=== PATIENT | female | born 1950 | race Caucasian/White ===

== ENCOUNTER → 2019-11-22 09:59 | Outpatient (BNVA) | payer MEDICARE, SELFPAY | PROVIDERS: PCP Internal Medicine; Visit Provider Surgery Vascular Surgery | DX: I65.23 Occlusion and stenosis of bilateral carotid arteries (principal) | CPT/HCPCS: 99213 ==

== ENCOUNTER 2020-04-23 10:35 | Outpatient (REF) | payer MEDICARE, SELFPAY ==
[2020-04-23 14:14] LABS: Glucose Urine UA NEG (NEG); Leukocyte Esterase Urine NEG (NEG); Nitrite Urine NEG (NEG); PH 5.5 (5.0-8.0); Specific Gravity - Urine >= 1.030 (1.005-1.025); Urine Blood NEG (NEG); Urine Ketones 5 MG/DL (NEG); Urine Protein TRACE MG/DL (NEG-TRACE)
[2020-04-23 14:17] LABS: Appearance Urine TURBID; Color Urine YELLOW
[2020-04-23 14:20] LABS: Estimated Average Glucose 154 mg/dL
[2020-04-23 14:31] LABS: Alanine Aminotransferase 13 U/L (0-31); Albumin Level 4.2 g/dL (3.5-5.0); Alkaline Phosphatase 124 U/L (39-117); Anion Gap 15 (12-20); Aspartate Amino Transferase 13 U/L (5-31); Bilirubin Total 0.4 mg/dL (0.0-1.0); Blood Urea Nitrogen 14 mg/dL (9-16); Calcium 9.4 mg/dL (8.4-10.2); Carbon Dioxide 29 mmol/L (22-29); Chloride 104 mmol/L (96-108); Cholesterol 274 mg/dL; Estimated Glomerular Filt Rate > 60; Glucose Fasting 165 mg/dL (60-99); HDL Cholesterol 29 mg/dL; LDL Cholesterol Calculated 172 mg/dl; Potassium 3.9 mmol/L (3.3-5.1); Sodium 144 mmol/L (135-145); Total Protein 6.7 g/dL (6.5-8.0); Triglycerides 365 mg/dL
[2020-04-23 14:51] LABS: Microalbum/Creatinine Ratio Ur 25.6 ug/mg cr
== END 2020-04-23 10:36 | disposition home or self-care (01) ==
LOC: HO.HMGCLDS 10:35
PROVIDERS: PCP Internal Medicine; Visit Provider Internal Medicine
DX: E11.9 Type 2 diabetes mellitus without complications (principal); E78.2 Mixed hyperlipidemia; C91.90 Lymphoid leukemia, unspecified not having achieved remission
CPT/HCPCS: 36415; 80053; 80061; 81003; 82043; 83036

== ENCOUNTER → 2020-05-10 08:08 | Outpatient (BNV) | payer MEDICARE, SELFPAY | PROVIDERS: PCP Internal Medicine; Visit Provider Internal Medicine Medical Oncology | DX: C91.10 Chronic lymphocytic leukemia of B-cell type not having achieved remission (principal) | CPT/HCPCS: 99213; 99214 ==

== ENCOUNTER → 2020-05-23 15:39 | Outpatient (BNVA) | payer MEDICARE, SELFPAY | PROVIDERS: PCP Internal Medicine; Visit Provider Nurse Practitioner | DX: R10.32 Left lower quadrant pain (principal); K57.92 Diverticulitis of intestine, part unspecified, without perforation or abscess without bleeding | CPT/HCPCS: Q3014 ==

== ENCOUNTER 2020-05-28 07:12 | Outpatient (REF) | payer MEDICARE, SELFPAY ==
[2020-05-28 11:57] LABS: Blood Urea Nitrogen 15 mg/dL (9-16); Estimated Glomerular Filt Rate > 60
== END 2020-05-28 07:13 | disposition home or self-care (01) ==
LOC: HO.HMGCLDS 07:12
PROVIDERS: PCP Internal Medicine; Visit Provider Nurse Practitioner
DX: R10.32 Left lower quadrant pain (principal); K57.92 Diverticulitis of intestine, part unspecified, without perforation or abscess without bleeding
CPT/HCPCS: 36415; 82565; 84520

== ENCOUNTER 2020-05-30 10:44 | Outpatient (REF) | payer MEDICARE, SELFPAY | END 2020-05-30 10:45 | disposition home or self-care (01) | LOC: HO.CT 10:44 | PROVIDERS: Visit Provider Nurse Practitioner | DX: Z13.89 Encounter for screening for other disorder (principal) ==

== ENCOUNTER 2020-06-05 08:20 | Outpatient (REF) | payer MEDICARE, SELFPAY ==
--- NOTE | ~2020-06-05 | CT_ITS ---
EXAMINATION: CT ABDOMEN AND PELVIS WITH CONTRAST CLINICAL INFORMATION: Diverticulitis. COMPARISON: CT abdomen/pelvis dated 01/28/2018. TECHNIQUE: Multidetector volumetric images were obtained from the superior aspect of the liver through the pubic symphysis following administration 85 mL of Omnipaque 350 intravenous contrast. Sagittal and coronal reformatted images were obtained on the technologist's workstation. Oral contrast: Yes. This CT examination was performed using dose optimization techniques as appropriate, variously including the following: *Automated exposure control. *Adjustment of mA and/or kV according to patient size (this includes techniques or standardized protocols for targeted exams where dose is matched to indication/reason for exam; i.e. extremities or head) *Use of iterative reconstruction technique. DLP: 798 mGy-cm. FINDINGS: LUNG BASES: The visualized lung bases are unremarkable. LIVER, GALLBLADDER, AND BILIARY TREE: The liver is normal in size, shape, and attenuation. No focal hepatic lesion or biliary ductal dilatation is present. Status post cholecystectomy. PANCREAS: Unremarkable. SPLEEN: Mild splenomegaly, unchanged. Stable small hypodensities within the posteroinferior aspect of the spleen, unchanged. No new splenic parenchymal lesion. ADRENAL GLANDS: Unremarkable. KIDNEYS AND URETERS: The kidneys are normal in size, shape, and attenuation. No hydronephrosis, hydroureter, or calculi seen. No perinephric stranding. BLADDER: Nondistended and unremarkable. GASTROINTESTINAL TRACT: Sigmoid diverticulosis with circumferential wall thickening and adjacent fat stranding, consistent with acute diverticulitis. There is extraluminal air extending inferior to the left pelvic sigmoid colon in a posterior direction to the region of the vaginal stump. This demonstrates mild peripheral enhancement with adjacent stranding and is consistent with a rectovaginal fistula. No additional extra luminal free air. PERITONEAL CAVITY: No intra-abdominal ascites. No dependent free air. ABDOMINAL WALL: Tiny, fat-containing periumbilical hernia. LYMPH NODES: Redemonstration of mildly prominent retroperitoneal lymph nodes with the largest lymph node now measuring 1.1 x 1.3 cm anterior to the abdominal aorta (previously 0.8 x 1.1 cm). Redemonstration of pelvic lymph nodes with the largest on the right in the region of the external iliac measuring 1.3 x 1.4 cm (previously 1.4 x 1.5 cm). VASCULAR: No abdominal aortic dilatation or dissection. Atherosclerotic calcifications throughout the abdominal aorta and its branch vessels. Unremarkable IVC. PELVIC VISCERA: Status post hysterectomy. OSSEOUS STRUCTURES: There is an age indeterminant inferior endplate compression fracture of L1, new when compared to the CT from 2018. CT/CT abdomen pelvis w con IMPRESSION: 1. Findings consistent with acute diverticulitis within the sigmoid colon and rectum. 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 No additional extraluminal air or abscess formation. 2. Stable, mild splenomegaly. Redemonstration of mildly prominent retroperitoneal and pelvic lymph nodes, a few of which have minimally increased in size in a few of which have minimally decreased in size when compared to the CT from 2018. No significant interval increase in lymphadenopathy. 3. Age indeterminant inferior endplate compression fracture of L1, new when compared to the CT from 2018. This critical result was discussed with ELISABETH Flores at 1:30 PM on 06/05/2020 and it was ascertained that the content and urgency of the report was understood at the time of direct communication.
[2020-06-05] MEDS: iohexoL 350 MG/ML 100 ML INFUS..BTL 85 ML IV (08:56)
== END 2020-06-05 08:21 | disposition home or self-care (01) ==
LOC: HO.CT 08:20
PROVIDERS: Visit Provider Nurse Practitioner
DX: R10.32 Left lower quadrant pain (principal); K57.92 Diverticulitis of intestine, part unspecified, without perforation or abscess without bleeding
CPT/HCPCS: 74177; Q9967

== ENCOUNTER → 2020-06-11 15:36 | Outpatient (BNVA) | payer MEDICARE, SELFPAY | PROVIDERS: PCP Internal Medicine; Visit Provider Surgery | DX: K57.92 Diverticulitis of intestine, part unspecified, without perforation or abscess without bleeding (principal) | CPT/HCPCS: 99202 ==

== ENCOUNTER 2020-07-04 09:37 | Outpatient (REF) | payer MEDICARE, SELFPAY ==
[2020-07-04 14:33] LABS: Blood Urea Nitrogen 22 mg/dL (9-16); Estimated Glomerular Filt Rate 55
== END 2020-07-04 09:38 | disposition home or self-care (01) ==
LOC: HO.HMGCLDS 09:37
PROVIDERS: Referring Provider Internal Medicine; Visit Provider Surgery
DX: K57.92 Diverticulitis of intestine, part unspecified, without perforation or abscess without bleeding (principal); N82.3 Fistula of vagina to large intestine; Z79.899 Other long term (current) drug therapy
CPT/HCPCS: 36415; 82565; 84520; 99212

== ENCOUNTER 2020-07-10 08:27 | Outpatient (REF) | payer MEDICARE, SELFPAY ==
--- NOTE | ~2020-07-10 | CT_ITS ---
EXAMINATION: CT ABDOMEN AND PELVIS WITH CONTRAST CLINICAL INFORMATION: Diverticulitis. COMPARISON: Previous CT scans of the abdomen and pelvis most recent May 2020 TECHNIQUE: Multidetector volumetric images were obtained from the superior aspect of the liver through the pubic symphysis following administration 85 mL of Omnipaque 350 intravenous contrast. Sagittal and coronal reformatted images were obtained on the technologist's workstation. Oral contrast: Yes This CT examination was performed using dose optimization techniques as appropriate, variously including the following: *Automated exposure control *Adjustment of mA and/or kV according to patient size (this includes techniques or standardized protocols for targeted exams where dose is matched to indication/reason for exam; i.e. extremities or head) *Use of iterative reconstruction technique DLP: 732 mGy-cm FINDINGS: LUNG BASES: The visualized lung bases are unremarkable. LIVER, GALLBLADDER, AND BILIARY TREE: The liver is normal in size, shape, and attenuation. No focal hepatic lesion or biliary ductal dilatation is present. The gallbladder has been removed. PANCREAS: Unremarkable. SPLEEN: The spleen is slightly enlarged measuring 14 cm in length. There is a 1 x 2 cm peripheral low-attenuation lesion in the spleen that is stable from multiple old exams going back to 2018 and may represent a hemangioma. ADRENAL GLANDS: Unremarkable. KIDNEYS AND URETERS: The kidneys are normal in size, shape, and attenuation. No hydronephrosis, hydroureter, or calculi seen. No perinephric stranding. BLADDER: Not optimally distended. GASTROINTESTINAL TRACT: There is diverticulosis of the colon. There is still wall thickening of the sigmoid colon and mild fat stranding suggesting mild sigmoid diverticulitis. There is a large amount of stool in the colon. The small bowel is unremarkable. The appendix is unremarkable. The stomach is unremarkable. ABDOMINAL WALL: No significant hernia is appreciated. LYMPH NODES: There is prominent retroperitoneal lymphadenopathy that appears unchanged. Largest lymph nodes are a left periaortic lymph node measuring 1 x 1.3 cm axial image 50 and right external iliac lymph node measuring 1 x 1.5 cm axial image 85 series 3. VASCULAR: There is evidence of atherosclerotic disease. No aneurysm is seen. PELVIC VISCERA: Unremarkable. OSSEOUS STRUCTURES: There are degenerative changes of the spine. There is a mild L1 vertebral body compression fracture that appears unchanged. CT/CT abdomen pelvis w con IMPRESSION: Mild sigmoid diverticulitis similar to May 2020 exam. There is also evidence of constipation. Given persistent finding, correlation with colonoscopy should be considered. Prominent retroperitoneal lymph nodes in the abdomen and pelvis similar to previous exam. Findings will be communicated by the [facility] work flow radiologic tech Alda Bowen.
[2020-07-10] MEDS: iohexoL 350 MG/ML 100 ML INFUS..BTL IV (09:18)
== END 2020-07-10 08:28 | disposition home or self-care (01) ==
LOC: HO.CT 08:27
PROVIDERS: Visit Provider Surgery
DX: K57.92 Diverticulitis of intestine, part unspecified, without perforation or abscess without bleeding (principal)
CPT/HCPCS: 74177; Q9967

== ENCOUNTER → 2020-07-18 10:20 | Outpatient (BNVA) | payer MEDICARE, SELFPAY | PROVIDERS: Referring Provider Internal Medicine; Visit Provider Surgery | DX: N82.3 Fistula of vagina to large intestine (principal) | CPT/HCPCS: 99212 ==

== ENCOUNTER 2020-08-24 06:08 | Day surgery (SDC) | payer MEDICARE, SELFPAY ==
[2020-08-16 13:25] VITALS: BMI 36.3
--- NOTE | 2020-08-22 12:12 | HO.ANESPROP2 ---
Documented by User: Alejandra Max 08/22/20 12:13 HPI - Anesthesia Eval Consult details Narrative: 70yo F for Colonoscopy with poss Polypectomy PMFSH Active Problems Active Problems: All Active Problems (Updated 08/07/20 @ 08:24 by Yoel Bernal MD) Rectovaginal fistula (Acute) LLQ pain (Acute) Diverticulitis (Acute) CLL (chronic lymphocytic leukemia) (Acute) Diverticulosis (Acute) Carotid stenosis (Acute) Past Medical History Medical History CLL (chronic lymphocytic leukemia) Compression fracture Diverticulosis Hyperlipidemia Osteoarthritis Osteopenia PCOS (polycystic ovarian syndrome) Skin cancer, basal cell Thrombocytopenia Type 2 diabetes mellitus Family History Family History Father Mother Surgical History Surgical History Chronic disease of adenoids H/O colonoscopy H/O: hysterectomy History of ear surgery Hx of cholecystectomy Social History Social History Alcohol intake: current Alcohol intake frequency: holidays/special occasions only Patient Tobacco Use Status: Never used Tobacco Use of substances other than those prescribed or required for medical reasons: No Are you DNR?: No Advance Directives: No Advance Directives Information Provided: No Recently lost weight without trying: No Nutrition Risks: No Nutritional Risk Patient : No Meds Allergies Allergy/AdvReac Type Severity Reaction Status Date / Time guaifenesin Allergy Hives Verified 07/18/20 10:53 Home Medications Medication Instructions Recorded Confirmed Last Taken Type acetaminophen 500 mg tablet 500 mg PO QID PRN 11/22/19 07/18/20 Unknown History calcium carbonate [Tums] 300 mg PO BID 08/07/20 08/07/20 Unknown History Exam Exam Date and Time: August 22, 2020 1212 Height,Weight and Vital Signs: Height 5 ft 4 in Weight 96.162 kg Pertinent Lab Results Pertinent Lab Results: Laboratory Tests 08/07/20 08/07/20 07:45 07:45 WBC 43.2 H* Hgb 15.5 Hct 47.9 H Plt Count 125 L Sodium 143 Potassium 4.3 Chloride 106 Carbon Dioxide 25 BUN 17 H Creatinine 0.91 Assessment and Plan Assessment Anesthesia Assessment: Chart Reviewed Documented by User: Almita Bundy 08/24/20 07:35 PMFSH Past Medical History Medical History CLL (chronic lymphocytic leukemia) Compression fracture Diverticulosis Hyperlipidemia Osteoarthritis Osteopenia PCOS (polycystic ovarian syndrome) Skin cancer, basal cell Thrombocytopenia Type 2 diabetes mellitus Family History Family History Father Mother Family history of problems with anesthesia: No Surgical History Surgical History Chronic disease of adenoids H/O colonoscopy H/O: hysterectomy History of ear surgery Hx of cholecystectomy History of Problems with Anesthesia: No Social History Social History Alcohol intake: current Alcohol intake frequency: holidays/special occasions only Patient Tobacco Use Status: Never used Tobacco Use of substances other than those prescribed or required for medical reasons: No Are you DNR?: No Advance Directives: No Advance Directives Information Provided: No Recently lost weight without trying: No Nutrition Risks: No Nutritional Risk Patient : No Meds Allergies Allergy/AdvReac Type Severity Reaction Status Date / Time guaifenesin Allergy Hives Verified 07/18/20 10:53 Home Medications Medication Instructions Recorded Confirmed Last Taken Type acetaminophen 500 mg tablet 500 mg PO QID PRN 11/22/19 07/18/20 Unknown History calcium carbonate [Tums] 300 mg PO BID 08/07/20 08/07/20 Unknown History Exam Height,Weight and Vital Signs: Vital Signs Temp Pulse Resp BP Pulse Ox 08/24/20 06:45 97.8 F 90 16 146/54 H 93 Airway Mallampati Class: II TM Dist: >3cm Neck ROM: Full Loose/Missing/Broken Teeth: No (2 top front capped) Heart: RRR Lungs: CTAB Assessment and Plan Assessment Anesthesia Assessment: Anesthesia Plan Discussed and Chart Reviewed Final Anesthetic Review NPO: Yes ASA Class: III Final Preanesthetic Review: No Changes in Pt Med Stat, Meds/Allgs Chart Reviewed, Consent Obtained/Reviewed and Anes Risks/Benef Reviewed Patient Risk: Intermediate Procedure Risk: Low Assessment/Block/Sedation in SS: Assess/Block/Sedation-SS Anesthetic Plan Anesthetic Plan: MAC: Disposition: Standard PACU
[2020-08-24 06:23] VITALS: BMI 37.5
[2020-08-24 06:45] VITALS: BP 146/54; PULSE 90; RESP 16; TEMP 36.6; O2SAT 93
[2020-08-24] MEDS: Lactated Ringers 1,000 ML 100 ML IVCONT (06:56)
--- NOTE | 2020-08-24 07:07 | MHC.SHP ---
Pre-Procedural Eval Section A Date of Service: 08/24/20 The patient is an INPATIENT: No The History & Physical has been completed within 30 days and I have reviewed it.: No Section B Chief Complaint: rectovaginal fistula Details of Present Illness: has ?colovaginal fistula; ffup CT in June - mild diverticulitis; last colonoscopy was about 15 year ago Relevant Family History (Specify if Yes): No Relevant Social History: None Present Medications: see Short Stay Collaborative assessment Medical History: Significant History (CLL, obesity, DM, HTN) History of Previous Operations: Relevant previous surgery/procedure and date(s) (THBSO) Allergies: Allergies Allergy/AdvReac Type Severity Reaction Status Date / Time guaifenesin Allergy Hives Verified 07/18/20 10:53 Review of Systems Sugical H&P ROS: Negative: Constitution, Cardiovascular, Respiratory, Neurological, Psychiatric, Hem-Onc, Allergic/Immunologic, Gastrointestinal, Genitourinary, Musculoskeletal, Integumentary, Endocrine and Eyes/Ears/Nose/Throat Exam Surgical H&P Exam: Normal: HEENT, Normal: Heart, Normal: Lungs, Normal: Extremities, Normal: Abdomen, Normal: Skin and Normal: Neurological Plan Diagnosis/Plan: Unchanged I have reviewed the history and physical and performed a pertinent physical examination on my patient. No changes have occurred unless specified.
--- NOTE | 2020-08-24 07:46 | W.PM.OPN ---
Operative Note Operative Note Date of Service: 08/24/20 Narrative: Preop diagnosis: diverticular disease, with colovaginal fistula Postop diagnosis: Diverticular disease, colovaginal fistula Procedure: Flexible sigmoidoscopy, unable to complete planned colonoscopy Surgeon: Juan Carlos Mckeon MD The patient is a 70 year female with known diverticular disease, who had described some scanty drainage from her vagina. She has a history of total hysterectomy and bilatertal salpingo-oophorectomy for polycystic ovarian syndrome in the distant past. She had a CAT scan done in May showing what appeared to be a the linear tract of extraluminal air from the sigmoid to the vaginal stump suggestive of fistula. her last colonoscopy was more than 15 years ago and I therefore recommended a repeat to try to evaluate this area. She understood the technique of colonoscopy. She was aware of the risks, benefits, and alternatives She was brought to the operating room placed in left lateral decubitus position under monitored anesthesia care. A full digital rectal was done and there were no palpable anal canal lesions. The tip of the Olympus colonoscope was gently inserted through the anal orifice and advanced with mild insufflation to the rectum where we gently advanced the scope and there was note of diverticulosis in the sigmoid. When we reached the level about 22 cm, we had encountered what appeared to be an angulation and some edema the mucosa at this area. I was unable to advance the scope with gentle force through this angulation and edema. There where no obvious lesions. I attempted multiple times with gentle advancement. However, in view of the risk of detaching of fistulous disease from the vaginal stump and causing perforation, I decided that it would be unsafe to continue to attempt more force. I therefore proceeded to withdraw the scope with examination of the rest of the distal sigmoid and rectum. Again, she had heavy diverticulosis of the distal sigmoid. The rectum did not reveal any lesions. The anal canal was unremarkable. The scope was then withdrawn completely The patient otherwise tolerated procedure well. There were no immediate complications . I will see her in the office to discuss the next step in her care.
[2020-08-24 07:49] VITALS: BP 104/58; PULSE 74; RESP 16; TEMP 36.9; O2SAT 98
--- NOTE | 2020-08-24 07:52 | PM.OP ---
Brief Operative Note Date of Service: 08/24/20 Pre-op diagnosis: Colovaginal fistula, diverticular disease Post-op diagnosis: same Procedure: flexible sigmoidoscopy, unable to complete planned colonoscopy due to angulation in the sigmoid with edema Surgeon: Juan Carlos Mckeon MD Anesthesia: MAC Was an Potato Chip Cooker Machine used for this Procedure?: No Estimated blood loss (mL): 0 Pathology: none sent Condition: stable Disposition: PACU
[2020-08-24 08:06] VITALS: BP 127/64; PULSE 71; RESP 18; TEMP 36.8; O2SAT 98
== END 2020-08-24 08:41 | disposition home or self-care (01) ==
PROVIDERS: Visit Provider Surgery
PROC: 0DBE8ZZ Excision of Large Intestine, Via Natural or Artificial Opening Endoscopic (ICD-10-PCS; CPT 45330; principal; 2020-08-24 07:30)
DX: N82.3 Fistula of vagina to large intestine (principal); K57.30 Diverticulosis of large intestine without perforation or abscess without bleeding; K56.609 Unspecified intestinal obstruction, unspecified as to partial versus complete obstruction; R60.9 Edema, unspecified; C91.10 Chronic lymphocytic leukemia of B-cell type not having achieved remission; D69.6 Thrombocytopenia, unspecified; E11.9 Type 2 diabetes mellitus without complications; E78.5 Hyperlipidemia, unspecified; M85.80 Other specified disorders of bone density and structure, unspecified site; Z79.899 Other long term (current) drug therapy
CPT/HCPCS: 45330

== ENCOUNTER → 2020-09-10 10:13 | Outpatient (BNVA) | payer MEDICARE, SELFPAY | PROVIDERS: Referring Provider Internal Medicine; Visit Provider Surgery | DX: N82.3 Fistula of vagina to large intestine (principal) | CPT/HCPCS: Q3014 ==

== ENCOUNTER → 2020-09-18 13:15 | Outpatient (BNVA) | payer MEDICARE, SELFPAY | PROVIDERS: PCP Internal Medicine; Referring Provider Internal Medicine; Visit Provider Nurse Practitioner | DX: K57.92 Diverticulitis of intestine, part unspecified, without perforation or abscess without bleeding (principal); N82.3 Fistula of vagina to large intestine | CPT/HCPCS: 99212 ==

== ENCOUNTER 2021-08-21 06:49 | Outpatient (REF) | payer MEDICARE, SELFPAY ==
--- NOTE | ~2021-08-21 | CT_ITS ---
EXAMINATION: CT SOFT TISSUE NECK WITH CONTRAST CLINICAL INFORMATION: 71-year-old with splenomegaly and lymph nodes. COMPARISON: 01/28/2018 CT. TECHNIQUE: Following the intravenous administration of 85 mL of Omnipaque 350 intravenous contrast, helical imaging was performed in the axial plane with generation of coronal and sagittal reformatted images. This CT examination was performed using dose optimization techniques as appropriate, variously including the following: *Automated exposure control *Adjustment of mA and/or kV according to patient size (this includes techniques or standardized protocols for targeted exams where dose is matched to indication/reason for exam; i.e. extremities or head) *Use of iterative reconstruction technique Technical Note: Some limitations related to oblique scan angles secondary to body habitus and head tilt/rotation. DLP: 1914 mGy-cm FINDINGS: SKULL BASE: The bony skull base appears grossly intact. Mild right-sided TMJ arthrosis, stable in appearance. Limited assessment of the visualized intracranial structures demonstrates no acute process within the limitations of the exam. The visualized calvarium is intact. The mastoids and middle ear cavities are unopacified. Bilateral carotid calcifications are noted. SUPRAHYOID NECK: Limited assessment of the nasopharynx due to oblique scan angles. Otherwise grossly unremarkable. Parapharyngeal spaces appear within normal limits within the limitations of the study. Streak and beam-hardening artifact from metallic dentition in the oral cavity results in obscuration of structures at the level of the oral cavity. The parotid glands are somewhat asymmetric with the right being larger than the left, similar to the previous exam, but otherwise normal in attenuation. Numerous periparotid lymph nodes are noted which are not pathologically enlarged, stable in appearance. A left posterior cervical lymph node at the C2 level is stable in appearance measuring 6 x 8 mm. There is limited assessment of the oropharynx due to scan asymmetry. No interval change from previous exam. Retropharynx is unremarkable. The submandibular glands are similar in appearance to the previous study. There are multiple bilateral submandibular space, submental and IJ chain lymph nodes, with the largest of these on the right measuring 2.1 x 0.8 cm compared to 2.3 x 0.9 cm on the previous study. Largest on the left measures 2.0 x 0.8 cm, unchanged in size. Multiple other smaller lymph nodes are largely stable. There is a 1.5 x 1.2 cm right posterior cervical chain lymph node at the C2-C3 level which appears slightly more plump on the current study in greatest short axis. INFRAHYOID NECK: The hypopharynx, larynx and thyroid gland appear within normal limits and stable in appearance. Normal appearance to the tracheoesophageal grooves. Multiple small bilateral IJ chain lymph nodes at the infrahyoid level are largely unchanged. Level V lymph nodes on the left are largely unchanged and not pathologically enlarged. Some level IV lymph nodes are seen bilaterally which are not pathologically enlarged and are stable in appearance. A single, mildly prominent left supraclavicular lymph node is stable. UPPER CHEST: See accompanying CT of the chest. SKELETAL: Multilevel cervical DDD and spondylosis is stable in appearance. Cervicothoracic dextrocurvature is unchanged. No focally aggressive osseous lesion. OTHER COMMENTS: None. CT/CT soft tissue neck w con IMPRESSION: 1. Numerous lymph nodes seen throughout the suprahyoid and infrahyoid portions of the neck, most of which are stable in appearance when compared to the previous study. A prominent lymph node in the right submandibular space appears slightly smaller and a prominent lymph node in the right posterior cervical chain at the C2-C3 level appears slightly more plump. Follow up as per clinical indications and correlate with underlying medical history. 2. Atheromatous calcified plaque at both carotid bulbs is noted with less than 50% diameter reduction stenosis by NASCET criteria bilaterally. 3. Some limitations related to scan angle obliquities at the level of the oral cavity and nasopharynx as detailed above. Suggest correlation with direct visualization of the pharyngeal tonsils/oropharynx and nasopharynx.
--- NOTE | ~2021-08-21 | CT_ITS ---
EXAMINATION: CT CHEST, ABDOMEN AND PELVIS WITH CONTRAST. CLINICAL INFORMATION: Follow up splenomegaly and lymph nodes. COMPARISON: CT of the abdomen and pelvis 07/10/2020 and 06/05/2020. TECHNIQUE: 5 mm thin axial and reformatted 2 mm thin sagittal and coronal images of chest, abdomen pelvis were obtained following IV 85 mL Omnipaque 350. DLP 1914. FINDINGS: CHEST: Lungs: Both lungs are fairly well expanded with patchy atelectatic changes in the left lower lobe and right upper lobe anteromedial segment. No focal pulmonary nodule, mass or consolidation is seen. There is plate-like atelectasis in the right lower lobe. MEDIASTINUM: The thyroid lobes are symmetrical and normal. The central trachea and the bronchi are widely patent. The heart size and pulmonary vascularity is normal. No pericardial effusion is seen. No abnormal size mediastinal or hilar lymph nodes are seen. PLEURA: There is no pleural effusion, thickening or calcification. AXILLA: There are multiple bilateral axillary and bilateral lateral thoracic lymph nodes which appear abnormal. The largest left axillary lymph node measures 1.6 cm. No abnormal soft tissue mass is seen in the chest wall. ABDOMEN AND PELVIS: LIVER: The liver is normal size, contour and density. No focal lesion or intrahepatic ductal dilatation is seen. The gallbladder has been surgically removed. SPLEEN: Unremarkable. PANCREAS: Unremarkable. ADRENAL GLANDS AND KIDNEYS: Both adrenal glands are symmetric and normal. Both kidneys are normal size, shape and position. No radiopaque calculi or hydronephrosis is seen. GI TRACT: There is scattered stool seen in the colon without any distention. There is nonspecific mild mural thickening involving the distal ileum or the ileal loops. The rest of the small bowel loops are unremarkable. Appendix is not visualized. There is diffuse colonic diverticulosis. LYMPHOVASCULAR STRUCTURES: The abdominal aorta is of normal caliber. The retroperitoneal lymphadenopathy is similar to previous study. The largest lymph node anterior to the aorta measures 1.2 cm. ABDOMINAL WALL: There is no evidence of hernia. PELVIS: There are scattered diverticuli in sigmoid colon without mural thickening or pericolic fat stranding. The bladder is unremarkable. No abnormal pelvic or inguinal lymph nodes seen. OSSEOUS STRUCTURES: There is mild degenerative disc changes throughout lower dorsal spine and L4-L5 disc level. There is inferior endplate wedging, likely chronic. No aggressive lytic or sclerotic process is seen. CT/CT abdomen pelvis w con IMPRESSION: Minimal atelectatic changes in both lungs as described above. No pulmonary nodule or mass seen. Abnormal axillary lymph nodes of unknown etiology. Nonspecific mild mural thickening of terminal ileum but no obstruction or fat stranding seen. Sigmoid colon diverticulosis without diverticulitis. Stable retroperitoneal lymphadenopathy. Degenerative disc changes.
[2021-08-21] MEDS: iohexoL 350 MG/ML 100 ML INFUS..BTL IV (10:27)
[2021-08-21] MEDS: Barium Sulfate Oral (Berry) 450 ML ORAL.SUSP 900 ML PO (10:28)
== END 2021-08-21 06:50 | disposition home or self-care (01) ==
LOC: HO.CT 06:49
PROVIDERS: Visit Provider Internal Medicine Medical Oncology
DX: C91.10 Chronic lymphocytic leukemia of B-cell type not having achieved remission (principal)
CPT/HCPCS: 70491; 71260; 74177; Q9967

== ENCOUNTER 2022-08-20 08:58 | Outpatient (REF) | payer MEDICARE, SELFPAY ==
[2022-08-20 12:48] LABS: Blood Urea Nitrogen 15 mg/dL (9-16); Estimated Glomerular Filt Rate > 60
== END 2022-08-20 08:59 | disposition home or self-care (01) ==
LOC: HO.HMGCLDS 08:58
PROVIDERS: Visit Provider Internal Medicine Medical Oncology
DX: C91.10 Chronic lymphocytic leukemia of B-cell type not having achieved remission (principal)
CPT/HCPCS: 36415; 82565; 84520

== ENCOUNTER 2022-09-02 06:02 | Outpatient (REF) | payer MEDICARE, SELFPAY ==
--- NOTE | ~2022-09-02 | CT_ITS ---
EXAMINATION: CT CHEST, ABDOMEN AND PELVIS WITH CONTRAST CLINICAL INFORMATION: Follow-up chronic lymphocytic leukemia. COMPARISON: Prior CT examinations, most recently 08/21/2021. TECHNIQUE: Multidetector volumetric imaging was performed from the thoracic inlet through the pubic symphysis following administration of 85 mL Omnipaque 350 intravenous contrast. Sagittal and coronal reformatted images were obtained on the technologist workstation. This CT examination was performed using dose optimization techniques as appropriate, variously including the following: *Automated exposure control. *Adjustment of mA and/or kV according to patient size (this includes techniques or standardized protocols for targeted exams where dose is matched to indication/reason for exam, i.e., extremities or head). *Use of iterative reconstruction technique. DLP: 2144 mGy-cm. FINDINGS: CHEST: LUNGS: The lungs are clear with no evidence of inflammation or nodules. MEDIASTINUM: The mediastinum is normal. Central vascular structures are unremarkable. No hilar or mediastinal lymphadenopathy. PERICARDIUM/PLEURA: There is no significant effusion. No pleural mass or thickening. CHEST WALL/AXILLA: There are enlarged bilateral axillary lymph nodes. One of the largest within the right axilla shows a short axis diameter of 1.0 cm (3:29). One of the largest within the left axilla shows a short axis diameter of 1.1 cm (3:12 and 6:65). The overall appearance is relatively stable from 08/21/2021. ABDOMEN/PELVIS: LIVER, GALLBLADDER, BILIARY TREE: The liver is normal in size, shape, and attenuation. No focal hepatic lesion or biliary ductal dilatation is present. The gallbladder is surgically absent. PANCREAS: Unremarkable. SPLEEN: There is mild splenomegaly, with a longitudinal span of 13.5 cm (3:35). No focal finding is noted. ADRENAL GLANDS: Unremarkable. KIDNEYS AND URETERS: The kidneys are normal in size, shape, and attenuation. No hydronephrosis or hydroureter or calculi seen. No perinephric stranding. BLADDER: Decompressed and otherwise unremarkable. GASTROINTESTINAL TRACT: There is mild diverticulosis, without acute diverticulitis. There is a moderate stool burden in the left colon. No obstruction, free intraperitoneal air or abscess is seen. There is no focal bowel wall thickening. The vermiform appendix appears normal. ABDOMINAL WALL: There is a small fat-containing umbilical hernia. LYMPH NODES: Anterior to the aorta, there is a nonpathologically enlarged lymph node, with short axis diameter of 8 mm (3:57). No sizable abdominopelvic lymphadenopathy is seen. VASCULAR: There is moderate aortoiliac atherosclerotic calcification. No abdominal aortic aneurysm or dissection is seen. PELVIC VISCERA: Surgically absent. No pelvic mass, free fluid or lymphadenopathy is seen. OSSEOUS STRUCTURES: There is multi-level thoracolumbar degenerative disc disease, spondylosis and Schmorl's node formation. There is a stable mild to moderate T11 lower endplate anterior wedge compression fracture. There is a transitional lumbar vertebra. No acute or aggressive osseous abnormality is seen. CT/CT abdomen pelvis w IV con IMPRESSION: 1. No suspicious thoracic nodule is seen. There is no mass, infiltrate or groundglass opacity. 2. There are stable mildly prominent bilateral axillary lymph nodes. Recommend continued attention on imaging follow-up. 3. No pleural effusion is seen. 4. There is mild splenomegaly. 5. There is mild diverticulosis, without acute diverticulitis. 6. No sizable abdominopelvic lymphadenopathy is seen. There is a stable mildly prominent, nonpathologically enlarged para-aortic lymph node. 7. There are degenerative changes of the thoracolumbar spine. A stable mild to moderate T11 lower endplate compression fracture is noted. There is no acute or aggressive osseous finding.
--- NOTE | ~2022-09-02 | CT_ITS ---
EXAMINATION: CT SOFT TISSUE NECK WITH CONTRAST CLINICAL INFORMATION: Follow-up. CLL. COMPARISON: Soft tissue neck CT scan 08/21/2021. TECHNIQUE: Following the intravenous administration of 80 mL of Omnipaque 350 intravenous contrast, helical imaging was performed in the axial plane with generation of coronal and sagittal reformatted images. This CT examination was performed using dose optimization techniques as appropriate, variously including the following: *Automated exposure control *Adjustment of mA and/or kV according to patient size (this includes techniques or standardized protocols for targeted exams where dose is matched to indication/reason for exam; i.e. extremities or head) *Use of iterative reconstruction technique DLP: 2144 mGy-cm FINDINGS: Again there are multiple enlarged cervical lymph nodes, none of which have substantially changed in size when compared to the most recent prior examination from 08/21/2021. There are a few pathologically enlarged left axillary lymph nodes that are partially included within the [id number]-kk-vhwc of this examination. No mediastinal adenopathy. Pharyngeal mucosal spaces are symmetric. Parapharyngeal and retromaxillary fat is preserved. 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 The parotid and submandibular glands are unremarkable. The tongue base and epiglottis are normal. Preepiglottic fat is preserved. The subglottic airway is widely patent. The thyroid gland is normal and the remainder of the visualized visceral soft tissues are normal. Visualized lungs are clear. Scattered atheromatous calcification involves the aortic arch apex. Cervical carotid and vertebral arteries are grossly patent. Internal jugular veins fill symmetrically. There is no acute osseous finding. Specifically no worrisome lytic or blastic osseous lesion. CT/CT soft tissue neck w IV con IMPRESSION: Stable examination. Again there are multiple enlarged cervical lymph nodes, none of which have substantially changed in size when compared to prior imaging from 08/21/2021. There are a few pathologically enlarged left axillary lymph nodes that are partially included within the dyhoi-et-vsck of this examination.
[2022-09-02] MEDS: iohexoL 350 MG/ML 100 ML INFUS..BTL 85 ML IV (08:54)
[2022-09-02] MEDS: Barium Sulfate Oral (Vanilla) 450 ML ORAL.SUSP 900 ML PO (08:55)
== END 2022-09-02 06:03 | disposition home or self-care (01) ==
LOC: HO.CT 06:02
PROVIDERS: Visit Provider Internal Medicine Medical Oncology
DX: C91.10 Chronic lymphocytic leukemia of B-cell type not having achieved remission (principal)
CPT/HCPCS: 70491; 71260; 74177; Q9967

== ENCOUNTER 2022-12-30 09:12 | Outpatient (AMB) | payer MEDICARE, SELFPAY ==
[2022-12-30 09:16] VITALS: BP 112/70; PULSE 86; O2SAT 98; BMI 31.6
--- NOTE | 2022-12-30 09:16 | A.OFFPC_ITS ---
Vital Signs 12/30/22 09:16 Height 5 ft 4 in Weight 184 lb 0.6 oz BMI 31.6 BP 112/70 Blood Pressure Location Rt radial Position Sitting Pulse 86 Pulse Source Pulse Oximeter Pulse Oximetry (%) 98 Oxygen Delivery Method Room Air Intake Visit Reasons: Transfer from [facility] to [facility] Protective Services Case Worker Required: No Allergies guaifenesin Allergy (Verified 12/30/22 09:32) Hives Medication List - Last Reconciled 12/30/22 by STEFANY Collins No Known Home Meds Tobacco use date assessed: 12/30/22 Fall risk assessment: No Falls in past year Last assessed Fall Risk: 12/30/22 Dental Screening Dental Screen Date: 12/30/22 Did you have a dental visit in the last 12 months?: Yes Did you have a dental problem in the last 6 months where you did not have access to dental care?: No Was dental information given to patient?: Patient has dentist HPI Transfer from [facility] to [facility] HPI Details Patient is a 72-year-old female who presents today to transfer care from Dr. Rhodes. Medical history significant for diverticulosis-followed by Patricia MAR, CLL-followed by Dr. 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 Patient denies shortness of breath or chest pain. Patient is due for blood work [facility] Medical History (Updated 12/30/22 @ 09:37 by STEFANY Collins) Hyperlipidemia LLQ pain Diverticulitis Type 2 diabetes mellitus Diverticulosis Compression fracture Osteopenia Skin cancer, basal cell Osteoarthritis PCOS (polycystic ovarian syndrome) CLL (chronic lymphocytic leukemia) Thrombocytopenia Surgical History History of ear surgery H/O colonoscopy Chronic disease of adenoids Hx of cholecystectomy H/O: hysterectomy Family History Father Prostate cancer Mother Breast cancer Social History Household Members: None Housing: Condominium Are you a primary rn patient care to a significant other at home: No Do you presently have visiting nurse or other home services: No Alcohol intake: current Alcohol intake frequency: holidays/special occasions only Patient Tobacco Use Status: Never used Tobacco service: No Current occupational status: retired Cognitive needs: No Hearing needs: No Vision needs: No Questionnaire PHQ-9 Over the last 2 weeks, how often have you been bothered by any of the following problems? 1. Little interest or pleasure in doing things: not at all 2. Feeling down, depressed, or hopeless: not at all 3. Trouble falling or staying asleep, or sleeping too much: not at all 4. Feeling tired or having little energy: not at all 5. Poor appetite or overeating: not at all 6. Feeling bad about yourself - or that you are a failure or have let yourself or your family down: not at all 7. Trouble concentrating on things, such as reading the newspaper or watching television: not at all 8. Moving or speaking so slowly that other people could have noticed. Or the opposite - being so fidgety or restless that you have been moving around a lot more than usual: not at all 9. Thoughts that you would be better off or of hurting yourself in some way: not at all Total score: 0 Depression Screening Interpretation: Negative Depression Screening Done: Yes 91888 - PHQ-9 Billing: Yes Source: Developed by Drs. Julio Villanueva, Noy Servin, Osman Guerra and colleagues, with an educational james from [employer]. Thrive Questionnaire Date Thrive assessed: 12/30/22 I am a: Patient What is your living situation today?: I have a steady place to live Within the past 12 months, did the food you bought not last and you didn't have the money to get more?: Never true Within the past 12 months, did you worry whether your food would run out before you got money to buy more?: Never true Do you have trouble paying for medicines?: No Do you have trouble getting transportation to medical appointments?: No Do you have trouble paying your heating and electricity bill?: No Do you have trouble taking care of your child, family member or friend?: No Do you have trouble with day-to-day activities such as bathing, preparing meals, shopping, managing finances, etc.?: No Are you currently unemployed and looking for a job?: No Are you interested in more education?: No Currently or been in a relationship where the following occur: no concerns reported AUDIT C Alcohol Use Questionnaire (AUDIT-C) 1. How often do you have a drink containing alcohol?: Never 3. How often do you have six or more drinks on one occasion?: Never Total Score: 0 Score Reviewed/Action Taken: No MARCIA-7 AMB Questionnaire MARCIA-7 Date MARCIA - 7 assessed: 12/30/22 Feeling nervous, anxious, or on edge: 0 = Not at all Not being able to stop or control worryin = Not at all Worrying too much about different things: 0 = Not at all Trouble relaxin = Not at all Being so restless that it is hard to sit still: 0 = Not at all Becoming easily annoyed or irritable: 0 = Not at all Feeling afraid as if something awful might happen: 0 = Not at all Total MARCIA-7 score (0-4 normal; 5-9 mild; 10-14 moderate; 15-21 severe): 0 Source: Developed by Drs. Julio Villanueva, Noy Servin, Osman Guerra and colleagues, with an educational james from [employer]. MARCIA-7 Assessment Billing MARCIA-7 Assessment Tool: MARCIA-7 Assessment 42160 Review of Systems Const Denies body aches, Denies chills, Denies fever(s) and Denies headache(s) ENT Denies dizziness, Denies otalgia, Denies headache(s), Denies nasal discharge, Denies sinus pain and Denies sore throat Card Denies chest pain, Denies edema, Denies lightheadedness and Denies dyspnea Resp Denies cough, Denies dyspnea and Denies wheezing GI Denies abdominal pain Denies dysuria Musc Denies myalgias Skin/Breast Denies rash Neuro Denies dizziness and Denies headache(s) Aller/Immun Denies wheezing Physical exam (Primary Care) Vital Signs: Last Vital Signs Pulse 86 12/30/22 09:16 BP 112/70 12/30/22 09:16 Pulse Ox 98 12/30/22 09:16 Oxygen Delivery Method Room Air 12/30/22 09:16 BMI result Body Mass Index 31.6 Tobacco/Smoking Status: Tobacco use Status Tobacco use date assessed 12/30/22 12/30/22 09:18 Patient Tobacco Use Status Never used Tobacco 12/30/22 09:18 PHQ-9: PHQ-9 Score PHQ-9: Total score 0 12/30/22 09:24 Depression Screening Interpretation: Negative Thrive Assessment: Date of Thrive Assessment Date Thrive assessed 12/30/22 12/30/22 09:18 Currently or been in a relationship where the following occur: no concerns reported Const General: cooperative and no acute distress Orientation/consciousness: patient oriented x3 HENMT Head: Yes normocephalic and Yes atraumatic Ears: TM's normal bilaterally Face and sinus: Yes sinuses nontender Mouth: oropharynx normal and moist mucous membranes Throat: Yes posterior oropharynx normal Eyes General: appearance normal, both eyes and all related structures Pupils: Equal, round and reactive pupils present EOM: EOMs intact bilaterally Neck Neck: Yes normal visual inspection, Yes full ROM and Yes no lymphadenopathy Thyroid: Thyroid normal Resp Effort & Inspection: normal respiratory effort and able to speak in complete sentences Auscultation: clear to auscultation bilaterally, no crackles, no rales, no rhonchi and no wheezes Cardio Rate: regular rate Rhythm: regular rhythm Heart sounds: S1 normal heart sound present, S2 normal heart sound present and no murmurs GI Palpation (GI): Soft to palpation and no hepatosplenomegaly Auscultation: normal bowel sounds Skin General skin exam: no rashes or lesions noted Neuro General: patient oriented x3 Cranial nerves: Yes Equal, round and reactive pupils present Gait exam (Neuro): Normal gait present Extrem General: Yes full ROM and No edema Assessment and Plan Assessment & Plan (1) Hyperlipidemia: Code(s): E78.5 - Hyperlipidemia, unspecified Plan: Continue low-cholesterol diet Blood work ordered (2) Type 2 diabetes mellitus: Comment: diet controlled Code(s): E11.9 - Type 2 diabetes mellitus without complications Plan: Continue low-carbohydrate diet Blood work ordered (3) CLL (chronic lymphocytic leukemia): Comment: dx 17 years ago, obs only Code(s): C91.10 - Chronic lymphocytic leukemia of B-cell type not having achieved remission Plan: Continue to follow-up with Dr. Bernal Plan Follow-up in 4 months for PE Orders: Orders Lipid Panel Today E11.9 - Type 2 diabetes mellitus without complications Comprehensive [place]. Panel Fast Today E11.9 - Type 2 diabetes mellitus without complications, E78.5 - Hyperlipidemia, unspecified TSH reflex Free T4 Today E11.9 - Type 2 diabetes mellitus without complications Hemoglobin A1c Today E11.9 - Type 2 diabetes mellitus without complications Coding Level of Care Code Est Pt Level 3 (93109) Diagnoses Hyperlipidemia E78.5 Type 2 diabetes mellitus E11.9 CLL (chronic lymphocytic leukemia) C91.10 Additional Codes MARCIA-7 Assessment Billing - MARCIA-7 Assessment Tool: MARCIA-7 Assessment 15563 ([id number])
== END 2022-12-30 09:49 | disposition home or self-care (01) ==
PROVIDERS: Visit Provider Nurse Practitioner Family
DX: E78.5 Hyperlipidemia, unspecified (principal); E11.9 Type 2 diabetes mellitus without complications; C91.10 Chronic lymphocytic leukemia of B-cell type not having achieved remission
CPT/HCPCS: 99213

== ENCOUNTER 2022-12-30 10:05 | Outpatient (REF) | payer MEDICARE, SELFPAY ==
[2022-12-30 14:02] LABS: Estimated Average Glucose 128 mg/dL; Hemoglobin A1c % 6.1 % (<6.0)
[2022-12-30 14:26] LABS: Anion Gap 14 (12-20)
[2022-12-30 14:31] LABS: Alanine Aminotransferase 7 U/L (0-31); Albumin Level 4.6 g/dL (3.5-5.0); Alkaline Phosphatase 86 U/L (39-117); Aspartate Amino Transferase 15 U/L (5-31); Bilirubin Total 0.7 mg/dL (0.0-1.0); Blood Urea Nitrogen 18 mg/dL (9-16); Carbon Dioxide 27 mmol/L (22-29); Chloride 106 mmol/L (96-108); Cholesterol 250 mg/dL (<200); Estimated Glomerular Filt Rate 57; Glucose Fasting 144 mg/dL (60-99); HDL Cholesterol 31 mg/dL (>40); LDL Cholesterol Calculated 164 mg/dL (<100); Potassium 4.1 mmol/L (3.3-5.1); Sodium 143 mmol/L (135-145); Total Protein 7.2 g/dL (6.5-8.0); Triglycerides 275 mg/dL (<150)
== END 2022-12-30 10:06 | disposition home or self-care (01) ==
LOC: HO.HMGCLDS 10:05
PROVIDERS: Visit Provider Nurse Practitioner Family
DX: E11.9 Type 2 diabetes mellitus without complications (principal); E78.5 Hyperlipidemia, unspecified
CPT/HCPCS: 36415; 80053; 80061; 83036; 84443

== ENCOUNTER 2023-05-27 08:24 | Outpatient (AMB) | payer MEDICARE, SELFPAY ==
--- NOTE | 2023-05-27 08:39 | AM.OFFVISMDC ---
Intake Vital Signs 05/27/23 08:42 Height 5 ft 4 in Weight 184 lb BMI 31.6 BP 110/72 Blood Pressure Location Rt brachial Position Sitting Pulse 74 Pulse Source Pulse Oximeter Pulse Oximetry (%) 98 Oxygen Delivery Method Room Air Intake Visit Reasons: AWV Intake Note: Patient is here for an Annual Wellness Visit. Helmet Binder Required: No Photo Offset Printer: Photo Offset Printer offered & declined Accompanied by: Self / Same As Patient Allergies guaifenesin Allergy (Verified 05/27/23 09:19) Hives HPI AWV HPI Details Patient presents to the office requesting an annual wellness visit. In addition to the above, Patient is complaining of low back pain. Symptoms are present every day. The low back pain is experienced when she is getting out of bed, or getting into the car. She reports no stiffness. Not exercising on a regular basis. She had a spinal fracture a few years ago. Pain symptoms only started a month or so ago. She lives alone, drives at night. She is able to handle her finances independently. No history of falls. Patient also has a history of diabetes. She takes no medications for it. Patient lost 107 lb after consulting a automation engineering technician. [facility] Medical History (Updated 05/27/23 @ 09:21 by Darrell Chang MD) Rectovaginal fistula Hyperlipidemia LLQ pain Diverticulitis Type 2 diabetes mellitus Diverticulosis Compression fracture Osteopenia Skin cancer, basal cell Osteoarthritis PCOS (polycystic ovarian syndrome) CLL (chronic lymphocytic leukemia) Thrombocytopenia Surgical History History of tooth extraction History of ear surgery H/O colonoscopy Chronic disease of adenoids Hx of cholecystectomy H/O: hysterectomy Family History Father Prostate cancer Mother Breast cancer Social History Household Members: None Housing: Condominium Are you a primary child care director to a significant other at home: No Do you presently have visiting nurse or other home services: No Alcohol intake: current Alcohol intake frequency: holidays/special occasions only Patient Tobacco Use Status: Never used Tobacco service: No Current occupational status: retired Cognitive needs: No Hearing needs: No Vision needs: No Questionnaire Medicare Wellness Checkup [age] What gender do you identify with?: female During the past 4 weeks, how much have you been bothered by emotional problems such as feeling anxious, depressed, irritable, sad or downhearted, and blue?: not at all During the past 4 weeks, has your physical & emotional health limited your social activities with family, friends, neighbors, or groups?: not at all During the past 4 weeks, how much bodily pain have you generally had?: moderate pain During the past 4 weeks, was someone available to help you if you needed & wanted help?: no, not at all During the past 4 weeks, what was the hardest physical activity you could do for at least 2 minutes?: moderate Can you get to places out of walking distance without help? (For eg., can you travel alone on buses, taxis or drive your car?): Yes Can you go shopping for groceries or clothes without someone's help?: Yes Can you prepare your own meals?: Yes Can you do your housework without help?: Yes Because of any health problems, do you need the help of another person with your personal care needs such as eating, bathing, dressing or getting around the house?: No Can you handle your own money without help?: Yes During the past 4 weeks, how would you rate your health in general?: good During the past 4 weeks how have things been going for you?: pretty well Are you having difficulties driving your car?: no Do you always fasten your seat belt when you are in a car?: yes, usually During past 4 weeks, have you been bothered by the following: never: Falling or dizzy when standing up, Sexual problems?, Trouble eating well?, Teeth or denture problems? and Problems using the telephone? and sometimes: Tiredness or fatigue? Have you fallen 2 or more times in the past year?: No Are you afraid of falling?: No Are you a smoker?: no During the past 4 weeks, how many drinks of wine, beer, or other alcoholic beverages did you have?: no alcohol at all Do you exercise for about 20 minutes 3 or more times a week?: no, I usually do not exercise this much Have you been given information to help with the following?: no: Hazards in your house that might hurt you? and no: Keeping track of your medications? How often do you have trouble taking medicines the way you have been told to take them?: I always take medicine as prescribed How confident are you that you can control & manage most of your health problems?: very confident What is your race?: White Mini Mental State Exam (MMSE) Orientation What is the (year) (season) (date) (day) (month)?: year, season, date, day and month Where are we (state) (county) (town or city) (hospital) (floor)?: state Score Score: 6 Activity of Daily Living Bathing - sponge bath, tub bath or shower: receives no assistance (gets in/out by self, if usual bathing means Dressing - getting clothes from closets & drawers, including inner/outer garments & fasteners.: gets clothes & gets completely dressed without help Toileting - going to the 'toilet room' for urine/bowel elimination & cleaning self/arranging clothes: goes to toilet room, cleans self, arranges clothes without help Transfer: moves in & out of bed and chair without help (may use support object) Continence: controls urination/bowel movements completely by self Feeding: feeds self without help Total Score: 0 Information obtained from: patient Using telephone: independent Traveling: independent Shopping: independent Preparing meals: independent Housework: independent Taking medicine: independent Managing money: independent PHQ-9 Over the last 2 weeks, how often have you been bothered by any of the following problems? 1. Little interest or pleasure in doing things: not at all 2. Feeling down, depressed, or hopeless: not at all 3. Trouble falling or staying asleep, or sleeping too much: not at all 4. Feeling tired or having little energy: not at all 5. Poor appetite or overeating: not at all 6. Feeling bad about yourself - or that you are a failure or have let yourself or your family down: not at all 7. Trouble concentrating on things, such as reading the newspaper or watching television: not at all 8. Moving or speaking so slowly that other people could have noticed. Or the opposite - being so fidgety or restless that you have been moving around a lot more than usual: not at all 9. Thoughts that you would be better off or of hurting yourself in some way: not at all Total score: 0 Depression Screening Interpretation: Negative Depression Screening Done: Yes Source: Developed by Drs. Julio Villanueva, Noy Servin, Osman Guerra and colleagues, with an educational james from [employer]. Thrive Questionnaire Date Thrive assessed: 05/27/23 I am a: Patient What is your living situation today?: I have a steady place to live Within the past 12 months, did the food you bought not last and you didn't have the money to get more?: Never true Within the past 12 months, did you worry whether your food would run out before you got money to buy more?: Never true Do you have trouble paying for medicines?: No Do you have trouble getting transportation to medical appointments?: No Do you have trouble paying your heating and electricity bill?: No Do you have trouble taking care of your child, family member or friend?: No Do you have trouble with day-to-day activities such as bathing, preparing meals, shopping, managing finances, etc.?: No Are you currently unemployed and looking for a job?: No Are you interested in more education?: No Currently or been in a relationship where the following occur: no concerns reported THRIVE Score: 0 MARCIA-7 AMB Questionnaire MARCIA-7 Date MARCIA - 7 assessed: 05/27/23 Feeling nervous, anxious, or on edge: 0 = Not at all Not being able to stop or control worryin = Not at all Worrying too much about different things: 0 = Not at all Trouble relaxin = Not at all Being so restless that it is hard to sit still: 0 = Not at all Becoming easily annoyed or irritable: 0 = Not at all Feeling afraid as if something awful might happen: 0 = Not at all Total MARCIA-7 score (0-4 normal; 5-9 mild; 10-14 moderate; 15-21 severe): 0 Source: Developed by Drs. Julio Villanueva, Noy Servin, Osman Guerra and colleagues, with an educational james from [employer]. AUDIT C Alcohol Use Questionnaire (AUDIT-C) 1. How often do you have a drink containing alcohol?: Never Total Score: 0 Review of Systems Const Reports chills, Reports fever(s) and Reports headache(s) Eyes Reports change in vision, Reports eye discharge and Reports irritation ENT Reports Normal hearing present, Reports bleeding gums, Reports ear discharge, Reports headache(s) and Reports hearing loss Resp Reports cough, Reports hemoptysis and Reports pain with cough GI Reports abdominal pain, Reports change in stool character and Reports excessive flatus Reports nipple discharge Musc Denies abnormal gait Skin/Breast Reports breast pain and Reports nipple discharge Neuro Reports Normal hearing present, Denies abnormal gait, Reports headache(s), Reports focal weakness and Reports seizure-like activity Psych Reports abnormal sleep pattern and Reports panic attacks Physical Exam Vital Signs: Last Vital Signs Pulse 74 05/27/23 08:42 BP 110/72 05/27/23 08:42 Pulse Ox 98 05/27/23 08:42 Oxygen Delivery Method Room Air 05/27/23 08:42 BMI result Body Mass Index 31.6 Balance: Normal Romberg: Negative Tandem Walk: Able to Walk and Turn: Able to Rise from sit to stand: Able to Hearing Whisper test: Pass Const General: cooperative, healthy appearing and comfortable HEENT Head: Yes normal to inspection and Yes atraumatic Eyes General: appearance normal, both eyes and all related structures Neck Neck: Yes normal visual inspection and Yes full ROM Chest Chest palpation & inspection: normal inspection of the chest and crepitus Resp Effort & Inspection: normal respiratory effort Auscultation: clear to auscultation bilaterally Cardio Jugular venous distension: no JVD Palpation: normal PMI Rate: regular rate Heart sounds: S1 normal heart sound present and S2 normal heart sound present GI Palpation (GI): Soft to palpation, Tenderness to palpation present (GI) and No hepatosplenomegaly present Neuro Cranial nerves: Yes Normal hearing present Extrem General: Yes normal to inspection and Yes full ROM Assessment & Plan Assessment & Plan (1) Type 2 diabetes mellitus: Comment: diet controlled Code(s): E11.9 - Type 2 diabetes mellitus without complications Plan: Condition is stable. (2) CLL (chronic lymphocytic leukemia): Comment: dx 17 years ago, obs only Code(s): C91.10 - Chronic lymphocytic leukemia of B-cell type not having achieved remission Plan: Condition is stable. Patient sees Dr. Bernal. (3) Rectovaginal fistula: Code(s): N82.3 - Fistula of vagina to large intestine Plan: Condition is stable. (4) Annual physical exam: Code(s): Z00.00 - Encounter for general adult medical examination without abnormal findings Plan: Blood work has been ordered. Orders: Orders Lipid Panel Today C91.10 - Chronic lymphocytic leukemia of B-cell type not having achieved remission, E11.9 - Type 2 diabetes mellitus without complications Liver Panel Today C91.10 - Chronic lymphocytic leukemia of B-cell type not having achieved remission, E11.9 - Type 2 diabetes mellitus without complications UA and rflx microscopic Today C91.10 - Chronic lymphocytic leukemia of B-cell type not having achieved remission, E11.9 - Type 2 diabetes mellitus without complications Basic Metabolic Panel Today C91.10 - Chronic lymphocytic leukemia of B-cell type not having achieved remission, E11.9 - Type 2 diabetes mellitus without complications Hemoglobin A1c Today C91.10 - Chronic lymphocytic leukemia of B-cell type not having achieved remission, E11.9 - Type 2 diabetes mellitus without complications Thyroid Stimulating Hormone Today C91.10 - Chronic lymphocytic leukemia of B-cell type not having achieved remission, E11.9 - Type 2 diabetes mellitus without complications Quality Reporting (2019) Depression/Bipolar (159/160/161/177) PHQ-9: Total score: 0 Coding Level of Care Code Medicare First (G0438) Est Pt Level 4 (99844) Diagnoses Type 2 diabetes mellitus E11.9 CLL (chronic lymphocytic leukemia) C91.10 Rectovaginal fistula N82.3 Annual physical exam Z00.00 CPT Codes Advance Care Planning - Time spent: 1-15 minutes, not on file ([id number]) Advance Care Planning Advance Care Planning discussion: Exists, not on file Date of discussion: 05/27/23 Who was present: Patient Forms completed: Health Care Proxy Time spent: 1-15 minutes, not on file Actual minutes spent: 5
[2023-05-27 08:42] VITALS: BP 110/72; PULSE 74; O2SAT 98; BMI 31.6
== END 2023-05-27 09:09 | disposition home or self-care (01) ==
PROVIDERS: Visit Provider Internal Medicine
DX: Z00.00 Encounter for general adult medical examination without abnormal findings (principal); E11.9 Type 2 diabetes mellitus without complications; C91.10 Chronic lymphocytic leukemia of B-cell type not having achieved remission; N82.3 Fistula of vagina to large intestine
CPT/HCPCS: 1124F; G0438

== ENCOUNTER 2023-05-27 09:37 | Outpatient (REF) | payer MEDICARE, SELFPAY ==
[2023-05-27 13:45] LABS: Appearance Urine Cloudy; Color Urine Dark Yellow; Glucose Urine UA Negative (Negative); Leukocyte Esterase Urine Moderate (2+) (Negative); Nitrite Urine Negative (Negative); Specific Gravity - Urine >= 1.030 (1.005-1.025); UMIC TRIGGER UA YES; Urine Blood Trace (Negative); Urine Ketones Trace mg/dL (Negative); Urine Protein 30 (1+) mg/dL (Neg-Trace)
[2023-05-27 13:58] LABS: Bacteria Urine Trace (None Seen); Granular Casts Urine Present; RBC Urine 0-2 /HPF (0-2); WBC Urine >50 /HPF (0-5)
[2023-05-27 14:14] LABS: Estimated Average Glucose 131 mg/dL; Hemoglobin A1c % 6.2 % (<6.0)
[2023-05-27 14:34] LABS: Alanine Aminotransferase 10 U/L (0-31); Albumin Level 4.3 g/dL (3.5-5.0); Alkaline Phosphatase 83 U/L (39-117); Anion Gap 13 (12-20); Aspartate Amino Transferase 14 U/L (5-31); Bilirubin Direct 0.2 mg/dL (0.0-0.5); Bilirubin Total 0.6 mg/dL (0.0-1.0); Blood Urea Nitrogen 22 mg/dL (9-16); Calcium 9.4 mg/dL (8.4-10.2); Carbon Dioxide 24 mmol/L (22-29); Chloride 108 mmol/L (96-108); Cholesterol 244 mg/dL (<200); Estimated Glomerular Filt Rate > 60; Glucose Random 146 mg/dL (60-115); HDL Cholesterol 36 mg/dL (>40); LDL Cholesterol Calculated 164 mg/dL (<100); Potassium 4.4 mmol/L (3.3-5.1); Sodium 141 mmol/L (135-145); Total Protein 6.8 g/dL (6.5-8.0); Triglycerides 223 mg/dL (<150)
[2023-05-27 14:37] LABS: Thyroid Stimulating Hormone 2.03 uIU/mL (0.32-4.0)
== END 2023-05-27 09:38 | disposition home or self-care (01) ==
LOC: HO.HMGCLDS 09:37
PROVIDERS: PCP Internal Medicine; Visit Provider Internal Medicine
DX: E11.9 Type 2 diabetes mellitus without complications (principal); C91.10 Chronic lymphocytic leukemia of B-cell type not having achieved remission
CPT/HCPCS: 36415; 80048; 80061; 80076; 81001; 83036; 84443

== ENCOUNTER 2024-01-13 08:00 | Outpatient (AMB) | payer MEDICARE, SELFPAY ==
--- NOTE | 2024-01-13 08:12 | A.OFFPC_ITS ---
Vital Signs 01/13/24 08:13 Height 5 ft 4 in Weight 207 lb 4 oz BMI 35.6 BP 130/90 H Blood Pressure Location Lt brachial Position Sitting Pulse 75 Pulse Source Pulse Oximeter Pulse Oximetry (%) 98 Oxygen Delivery Method Room Air Intake Visit Reasons: 6 Month F/U appt Intake Note: Patient is here to follow up on DM, HLD, CLL. Carpenter Repair Required: No Cigar Wrapper Tender Automatic: Not Required per policy Accompanied by: Self / Same As Patient Allergies guaifenesin Allergy (Verified 01/13/24 08:12) Hives Tobacco use date assessed: 01/13/24 Fall risk assessment: No Falls in past year Last assessed Fall Risk: 01/13/24 Dental Screening Dental Screen Date: 01/13/24 Did you have a dental visit in the last 12 months?: Yes Did you have a dental problem in the last 6 months where you did not have access to dental care?: No Was dental information given to patient?: Patient has dentist [facility] Medical History Rectovaginal fistula Hyperlipidemia LLQ pain Diverticulitis Type 2 diabetes mellitus Diverticulosis Compression fracture Osteopenia Skin cancer, basal cell Osteoarthritis PCOS (polycystic ovarian syndrome) CLL (chronic lymphocytic leukemia) Thrombocytopenia Surgical History History of tooth extraction History of ear surgery H/O colonoscopy Chronic disease of adenoids Hx of cholecystectomy H/O: hysterectomy Family History Father Prostate cancer Mother Breast cancer Social History Household Members: None Housing: Condominium Are you a primary home care physical therapist to a significant other at home: No Do you presently have visiting nurse or other home services: No Alcohol intake: current Alcohol intake frequency: holidays/special occasions only Patient Tobacco Use Status: Never used Tobacco e-Cigarette/Vaping Use: Never Used Second Hand Smoke Exposure: No service: No Current occupational status: retired Cognitive needs: No Hearing needs: No Vision needs: No Questionnaire Thrive Questionnaire Date Thrive assessed: 05/27/23 MARCIA-7 AMB Questionnaire MARCIA-7 Date MARCIA - 7 assessed: 05/27/23 Source: Developed by Drs. Julio Villanueva, Noy Servin, Osman Guerra and colleagues, with an educational james from [facility]. Physical exam (Primary Care) Vital Signs: Last Vital Signs Pulse 75 01/13/24 08:13 BP 130/90 H 01/13/24 08:13 Pulse Ox 98 01/13/24 08:13 Oxygen Delivery Method Room Air 01/13/24 08:13 BMI result Body Mass Index 35.6 Tobacco/Smoking Status: Tobacco use Status Tobacco use date assessed 01/13/24 01/13/24 08:19 Patient Tobacco Use Status Never used Tobacco 01/13/24 08:19 e-Cigarette/Vaping Use Never Used 01/13/24 08:19 Thrive Assessment: Date of Thrive Assessment Date Thrive assessed 05/27/23 01/13/24 08:19 Results AMB Hemoglobin A1c AMB Hemoglobin A1c 7.8 % Last Edit by MICHEAL Love on 01/13/24 08:23 Results Reviewed Results Reviewed: Laboratory Last Values Hgb A1c (Clinic) 7.8 % (4.0-6.0) H 01/13/24 08:11 Coding Level of Care Code Est Pt Level 4 (42924) Complex EM visit Add On G2211 Diagnoses Type 2 diabetes mellitus E11.9 CLL (chronic lymphocytic leukemia) C91.10 Assessment & Plan Assessment & Plan (1) Type 2 diabetes mellitus: Comment: diet controlled Code(s): E11.9 - Type 2 diabetes mellitus without complications Category: Medical Plan: See below (2) CLL (chronic lymphocytic leukemia): Comment: dx 17 years ago, obs only Code(s): C91.10 - Chronic lymphocytic leukemia of B-cell type not having achieved remission Category: Medical Plan: Patient sees Dr. Bernal. Orders: Orders AMB Hemoglobin A1c Today E11.9 - Type 2 diabetes mellitus without complications Scribe Plan - Not visible on output: History of Present Illness The patient is a 73-year-old female presenting with Type 2 Diabetes Mellitus. Previously, she was diagnosed with diabetes but was not placed on medication as her Hemoglobin A1c was 6.2%. However, recent laboratory results indicate an increase in her Hemoglobin A1c to 7.8%, confirming Type 2 Diabetes Mellitus. The patient reports not having attempted dietary changes to manage blood sugar levels. Medical history is significant for Chronic Lymphocytic Leukemia (CLL) and splenomegaly. While managing her leukemia, the patient has experienced splenic enlargement. She also mentions historical weight loss, previously weighing 287 pounds. This visit focuses on discussing medication options for her diabetes and reviewing overall health management in context with her leukemia and symptoms of splenomegaly. 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 Order a glucometer for home blood sugar monitoring with instructions to check fasting and postprandial glucose levels. Evaluate glucose readings in four weeks to adjust the treatment plan as needed. - Chronic Lymphocytic Leukemia CLL): Continue monitoring with planned evaluations. Schedule mammogram as patient reports lumps related to leukemia. Reassess splenomegaly as clinically indicated. - Dietary/Nutrition: Recommend consultation with a vp site to explore dietary management options for diabetes. Patient was informed and verbally consented to the use of an ambient scribe for clinic note documentation during this visit. Discussion Notes I discussed with the patient the diagnosis of Type 2 Diabetes Mellitus and outlined management options. Given her concern about metformin side effects, we decided on Trulicity, a weekly injection, pending insurance coverage and financial feasibility. The potential benefits and side effects of Trulicity were discussed, as well as the importance of monitoring blood sugars at home. The patient expressed intent to receive nutrition counseling. For her existing CLL, I emphasized the importance of routine monitoring and suggested rescheduling mammograms despite her concerns over leukemia-related lumps, explaining their clinical importance. Follow-up is arranged in four weeks to review glucose logs and reassess her blood sugar management strategy. Patient Instructions - Begin Trulicity as prescribed. - Obtain a glucometer for daily glucose monitoring. - Schedule and attend a vp site appointment. - Arrange for fasting and postprandial blood sugar checks twice a week. - Schedule a mammogram as previously missed. - Return for follow-up in four weeks for glucose management assessment. - Seek medical attention for any concerning or worsening symptoms.
[2024-01-13 08:13] VITALS: BP 130/90; PULSE 75; O2SAT 98; BMI 35.6
== END 2024-01-13 08:45 | disposition home or self-care (01) ==
PROVIDERS: PCP Internal Medicine; Visit Provider Internal Medicine
DX: E11.9 Type 2 diabetes mellitus without complications (principal); C91.10 Chronic lymphocytic leukemia of B-cell type not having achieved remission

== ENCOUNTER → 2024-01-13 08:00 | Outpatient (BNVA) | payer MEDICARE, SELFPAY | PROVIDERS: PCP Internal Medicine; Visit Provider Internal Medicine | DX: E11.9 Type 2 diabetes mellitus without complications (principal); C91.10 Chronic lymphocytic leukemia of B-cell type not having achieved remission | CPT/HCPCS: 83036; 99212 ==

== ENCOUNTER 2024-02-13 09:48 | Outpatient (REF) | payer MEDICARE, SELFPAY ==
--- NOTE | ~2024-02-13 | XR_ITS ---
CLINICAL HISTORY: R05.9 - Cough, unspecified 2 view chest x-ray Comparison: None Findings: No consolidation or effusion. Normal size heart. No acute fracture. IMPRESSION: 1. No acute findings. This document has been electronically signed by: Danica Wall MD on 02/13/2024 15:23:39
== END 2024-02-13 09:49 | disposition home or self-care (01) ==
LOC: HO.HMGCX 09:48
PROVIDERS: PCP Internal Medicine; Visit Provider Physician Assistant Medical
DX: U07.1 COVID-19 (principal); R05.9 Cough, unspecified; E11.9 Type 2 diabetes mellitus without complications; C91.10 Chronic lymphocytic leukemia of B-cell type not having achieved remission
CPT/HCPCS: 0241U; 71046; 99212

== ENCOUNTER 2024-02-13 09:48 | Outpatient (AMB) | payer MEDICARE, SELFPAY ==
--- OUTSIDE RECORDS SUMMARY | 2024-02-13 09:55 | XMS_ITS | Data Portability ---
Author Organization ELISABETH Bass [facility] [address] Address [address] [place] [address] Care Team Providers Care Supervisor Tumbling And Rolling Name Role Phone [facility] Family Medicine [phone] Assessment No assessment recorded. Plan of Treatment Reminders Order Date Submit Date Provider Last Modified By Organization Details Last Modified Time Details Appointments None recorded. Lab None recorded. Referral None recorded. Procedures None recorded. Surgeries None recorded. Imaging None recorded. Medication Orders cephalexin 500 mg capsule 2022 023 [id number], [address] [place], [place], [phone], 12:50:18 Patient TargetsNo targets recorded. Patient Instructions Encounter Date Encounter Id Patient Instructions Last Modified By Organization Details Last Modified Time 08/12/2022 [id number] paronychia: care instructions [email or web address] Not available 08/12/2022 12:50:19 Reason for Referral None Reported. 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 Medical Equipment None Reported. Allergies No known drug allergies Medications Name Sig Start Date Stop Date Status Note LastModified by Organization Details LastModified Time amoxicillin 500 mg capsule TAKE 1 CAPSULE BY MOUTH THREE TIMES DAILY 08/12 completed Not Available Not Available Not Available clotrimazol e 10 mg charlie DISSOLVE 1 LOZENGE BY MOUTH THREE TIMES DAILY 08/12 completed Not Available Not Available Not Available cephalexin 500 mg capsule TAKE 1 CAPSULE BY MOUTH THREE TIMES DAILY FOR 7 DAYS active Not Available Not Available No t Available Vitals Date Recorded Body height Body mass index (BMI) Body weight Oxygen saturation Oxygen saturation in Arterial blood by Pulse oximetry Heart rate Respiratory rate Body temperature Provider Name and Address Organization Details Last Updated DateTime 3 162.56 cm 34.7 kg/m2 46018.6 6 g 96 % 96 % 86 /min 20 /min 98.6 [degF] Polly Bales PA - [facility] 3 12:17:34 Social History Question Answer Notes LastModified by Organizat ion Details LastModified Time Tobacco Smoking Status Never Smoker Polly carmona PA [facility] 08/12/2022 12:15:54 What Is Your Level Of Alcohol Consumption? None Information not available 08/12/2022 Have You Had Direct Contact, Or Contact During Intimacy, With Monkeypox Rash, Scabs, Or Body Fluids From A Person With Monkeypox? No Information not available 08/12/2022 Do You Use Any Illicit Or Recreational Drugs? No Information not available 08/12/2022 Have You Recently Traveled Abroad? No Information not available 08/12/2022 Do You Or Have You Ever Used Any Other Forms Of Tobacco Or Nicotine? No Information not available 08/12/2022 Sex: Unknown Functional Status None recorded. Mental Status None recorded. Family History Relationship Description Onset Age of this Age Resolved Age Notes LastModified by Organization Details LastModified Time Father No current problems or disability Not available 08/12 12:15:48 Mother No current problems or disability Not available 08/12 12:15:48 Medical History No medical history recorded. Gynecological History Statement/Question Response Is there any chance of ? No LMP N/A Obstetrics History GPAL:G 0 P 0 0 0 0 Immunizations Vaccine Type Date Status Note Provider Nam e and Address Organization Details Recorded Time Influenza, adjuvanted, trivalent, PF 6 completed ELISABETH Torres [facility] 08/12/2022 12:14:30 Influenza, MDCK, quadrivalent, preservative 7 completed Polly [place] null, PA - [facility] 08/12/2022 12:14:30 Influenza, high-dose, quadrivalent, PF 0 completed Polly Nii null, PA - [facility] 08/12/2022 12:14:30 Influenza, high-dose, quadrivalent, PF 2 completed Polly Nii null, PA - [facility] 08/12/2022 12:14:30 COVID-19, mRNA, LNP-S, PF, 100 mcg/0.5mL dose or 50 mcg/0.25mL dose 2 completed Polly [place] null, PA - [facility] 08/12/2022 12:14:30 COVID-19, mRNA, LNP-S, PF, 30 mcg/0.3 mL dose 1 completed Polly [place] null, PA - [facility] 08/12/2022 12:14:30 COVID-19, mRNA, LNP-S, PF, 30 mcg/0.3 mL dose 1 completed Polly Nii null, PA - [facility] 08/12/2022 12:14:30 COVID-19, mRNA, LNP-S, PF, 30 mcg/0.3 mL dose 1 completed Polly [place] null, PA - [facility] 08/12/2022 12:14:30 COVID-19, mRNA, LNP-S, bivalent, PF, 30 mcg/0.3 mL dose 2 completed Polly [place] null, PA - [facility] 08/12/2022 12:14:30 Influenza, split virus, quadrivalent, PF 8 completed Polly [place] null, PA - [facility] 08/12/2022 12:14:30 Past Encounters Encounter ID Performer Location Encounter Start Date Encounter Closed Date Diagnosis/Indication Diagnosis SNOMED-CT Code Diagnosis ICD10 Code [id number] [address] [place] [address] 07/31/2016 09:56:04 07/31/2016 10:54:24 [id number] [address] [facility] [place] [address] 08/28/2021 12:18:10 08/28/2021 13:35:19 [id number] [address] [facility] [place] [address] 01/16/2015 16:38:08 01/16/2015 17:31:53 [id number] Indra García MD [address] [facility] [place] [address] 08/12/2022 12:06:21 08/12/2022 12:52:13 Paronychia of finger of left hand [id number] L03.012 Health Concerns Section Related Observation LastModified by Organization Detai ls LastModified Time None Recorded Concern Status LastModified by Organization Details LastModified Time None Recorded Advance Directives Directive None Recorded Payers Encounter Date Sequence Insurance Name Policy Number Policy Medina Covered Member ID Medina Member ID Guarantor Name 08/28/2021 1 [place] Vicenta L Broshears [id number] 29 Vicenta L Broshears 08/28/2021 2 [place] [id number] Vicenta L Broshears [id number] Vicenta L Broshears 08/12/2022 1 [place] Vicenta L Broshears [id number] 29 Vicenta L Broshears 08/12/2022 2 [place] [id number] Vicenta L Broshears [id number] Vicenta L Broshears Notes Date Note Type Note Provider Name and Address Organization Details Recorded Time 08/12/2022 text/html Skin Redness UCReported bypatient.Locatio n:left hand Quality:painful;e rythematous;warm Severity:worsenin g Duration:1 days Onset:gradual onset Symptoms:no fever; no nausea; no vomiting;swelling Indra García MD [address], [place], [address], [place] - [facility] 08/12/2022 12:59:42 OBGyn Episode No OBEpisode recorded.
--- NOTE | 2024-02-13 11:27 | MHC.OFFWIV ---
Intake Vital Signs 02/13/24 11:30 Weight 206 lb Pulse 99 Pulse Source Pulse Oximeter Temp 98.7 F Temp Source Oral Pulse Oximetry (%) 97 Oxygen Delivery Method Room Air Intake Visit Reasons: EP + Covid test Intake Note: Patient here for positive covid at home test and would like to confirm Patient Tobacco Use Status: Never used Tobacco Allergies guaifenesin Allergy (Verified 02/13/24 11:31) Hives Do you need a note to return to daycare/school/sports/work: No PFSH Medical History Rectovaginal fistula Hyperlipidemia LLQ pain Diverticulitis Type 2 diabetes mellitus Diverticulosis Compression fracture Osteopenia Skin cancer, basal cell Osteoarthritis PCOS (polycystic ovarian syndrome) CLL (chronic lymphocytic leukemia) Thrombocytopenia Surgical History History of tooth extraction History of ear surgery H/O colonoscopy Chronic disease of adenoids Hx of cholecystectomy H/O: hysterectomy Family History Father Prostate cancer Mother Breast cancer Social History Household Members: None Housing: Condominium Are you a primary healthcare educator to a significant other at home: No Do you presently have visiting nurse or other home services: No Alcohol intake: current Alcohol intake frequency: holidays/special occasions only Patient Tobacco Use Status: Never used Tobacco e-Cigarette/Vaping Use: Never Used Second Hand Smoke Exposure: No service: No Current occupational status: retired Cognitive needs: No Hearing needs: No Vision needs: No Review of Systems Const All systems reviewed & are unremarkable except as noted in HPI and below Physical Exam Vital Signs: Last Vital Signs Temp 98.7 F 02/13/24 11:30 Pulse 99 02/13/24 11:30 Pulse Ox 97 02/13/24 11:30 Oxygen Delivery Method Room Air 02/13/24 11:30 Assessment & Plan Assessment & Plan Plan Patient is on day 4 of symptoms related to COVID, complains of mild fatigue, nasal congestion, headache and occasional cough. She denies generalized weakness, shortness of breath, chest pain, significant cough, or other significant symptoms. She comes to the walk-in hoping to confirm positive Orders: Orders SARS-CoV2/FLU/RSV Today J06.9 - Acute upper respiratory infection, unspecified XR chest 2V Today R05.9 - Cough, unspecified Medications: New nitrofurantoin monohyd/m-cryst 100 mg (Macrobid) must administer with a meal/food 100 mg PO Q12H 5 days 10 caps 0RF N39.0 - Urinary tract infection, site not specified ondansetron 4 mg PO TID 5 days PRN 10 tabs 0RF nausea and vomiting Coding Level of Care Code Est Pt Level 4 (75783)
[2024-02-13 11:30] VITALS: PULSE 99; TEMP 37.1; O2SAT 97
[2024-02-13 15:11] LABS: Influenza A PCR NEGATIVE (Negative); Influenza B PCR NEGATIVE (Negative); Resp Syncy Virus RNA Qual PCR NEGATIVE (Negative); SARS COV2 PCR INHOUSE POSITIVE (Negative)
== END 2024-02-13 14:59 | disposition home or self-care (01) ==
PROVIDERS: PCP Internal Medicine; Visit Provider Physician Assistant Medical
DX: J06.9 Acute upper respiratory infection, unspecified (principal)

== ENCOUNTER → 2024-02-13 14:11 | Outpatient (BNV) | payer MEDICARE, SELFPAY | PROVIDERS: PCP Internal Medicine; Visit Provider Radiology Diagnostic Radiology | DX: R05.9 Cough, unspecified (principal) | CPT/HCPCS: 71046 ==

== ENCOUNTER 2024-02-18 08:40 | Outpatient (AMB) | payer MEDICARE, SELFPAY ==
--- OUTSIDE RECORDS SUMMARY | 2024-02-18 08:43 | XMS_ITS | Data Portability ---
Author Organization ELISABETH Bass [facility] [address] Address [address] [place] [address] Care Team Providers Care Cryptologic Technician Technical Name Role Phone [facility] Family Medicine Assessment No assessment recorded. Plan of Treatment Reminders Order Date Submit Date Provider Last Modified By Organization Details Last Modified Time Details Appointments None recorded. Lab None recorded. Referral None recorded. Procedures None recorded. Surgeries None recorded. Imaging None recorded. Medication Orders cephalexin 500 mg capsule 2022 023 [id number], [address] [place], [place], [phone], 12:50:18 Patient TargetsNo targets recorded. Patient Instructions Encounter Date Encounter Id Patient Instructions Last Modified By Organization Details Last Modified Time 08/12/2022 [id number] paronychia: care instructions skealy2 Not available 08/12/2022 12:50:19 Reason for Referral None Reported. Problems Name Problem SNOMED Code Status Onset Date Resolution Date Notes Provider Name and Address Organization Details Recorded Time T-cell chronic lymphocytic leukemia 375870160 Active 2022 ELISABETH Torres [facility] 3 12:15:21 Lymphedema 509849013 Active 2022 Polly carmona PA [facility] [...] Updated DateTime 3 162.56 cm 34.7 kg/m2 26764.6 6 g 96 % 96 % 86 [...] Influenza, MDCK, quadrivalent, preservative 7 completed Polly [place] null, PA - [facility] 08/12/2022 12:14:30 Influenza, high-dose, quadrivalent, PF 0 completed Polly [place] null, PA - [facility] 08/12/2022 12:14:30 Influenza, high-dose, quadrivalent, PF 2 completed Polly [place] null, PA - [facility] 08/12/2022 12:14:30 COVID-19, mRNA, LNP-S, PF, 100 mcg/0.5mL dose or 50 mcg/0.25mL dose 2 completed Polly [place] null, PA - [facility] 08/12/2022 12:14:30 [...] 30 mcg/0.3 mL dose 2 completed Polly [place] null, PA - [facility] 08/12/2022 12:14:30 Influenza, split virus, quadrivalent, PF 8 completed Polly Nii null, PA - [facility] 08/12/2022 12:14:30 Past Encounters Encounter ID Performer Location Encounter Start Date Encounter Closed Date Diagnosis/Indication Diagnosis SNOMED-CT Code Diagnosis ICD10 Code [id number] [address] [place] [address] 07/31/2016 09:56:04 07/31/2016 10:54:24 [id number] [address] [facility] [place] [address] 08/28/2021 12:18:10 08/28/2021 13:35:19 [id number] [address] [facility] [place] [address] 01/16/2015 16:38:08 01/16/2015 17:31:53 [id number] Indra García MD [address] [facility] [place] [address] 08/12/2022 12:06:21 08/12/2022 12:52:13 Paronychia of finger of left hand [id number] L03.012 Health Concerns Section Related Observation LastModified by Organization Detai ls LastModified Time None Recorded Concern Status LastModified by Organization Details LastModified Time None Recorded Advance Directives Directive None Recorded Payers Encounter Date Sequence Insurance Name Policy Number Policy Medina Covered Member ID Medina Member ID Guarantor Name 08/28/2021 1 [place] Vicenta L Broshears [id number] 29 Vicenta L Broshears 08/28/2021 2 [place] [id number] Vicenta L Broshears [id number] Vicenta L Broshears 08/12/2022 1 [place] Vicenta L Broshears [id number] 29 Vicenta L Broshears 08/12/2022 2 [place] [id number] Vicenta L Broshears [id number] Vicenta L Broshears Notes Date Note Type Note Provider Name and Address Organization Details Recorded Time 08/12/2022 text/html Skin Redness UCReported bypatient.Locatio n:left hand Quality:painful;e rythematous;warm Severity:worsenin g Duration:1 days Onset:gradual onset Symptoms:no fever; no nausea; no vomiting;swelling Indra García MD [address], [place], [address], [place] - [facility] 08/12/2022 12:59:42 OBGyn Episode No OBEpisode recorded.
--- NOTE | 2024-02-18 08:49 | A.OFFPC_ITS ---
Vital Signs 02/18/24 08:51 Height 5 ft 4 in Weight 202 lb 4 oz BMI 34.7 BP 110/70 Blood Pressure Location Lt brachial Position Sitting Pulse 100 Pulse Source Pulse Oximeter Pulse Oximetry (%) 96 Oxygen Delivery Method Room Air Intake Visit Reasons: Follow Up DM Intake Note: Patient is here to follow up on DM. Fruit Pitter Required: No Front Desk Representative: Not Required per policy Accompanied by: Self / Same As Patient Allergies guaifenesin Allergy (Verified 02/18/24 08:51) Hives Tobacco use date assessed: 02/18/24 Fall risk assessment: No Falls in past year Last assessed Fall Risk: 02/18/24 Dental Screening Dental Screen Date: 02/18/24 Did you have a dental visit in the last 12 months?: Yes Did you have a dental problem in the last 6 months where you did not have access to dental care?: No Was dental information given to patient?: Patient has dentist HPI Follow Up DM HPI Details 73-year-old female presents to the offic e to discuss her chronic medical conditions. Patient was diagnosed with diabetes in the last office visit. Her hemoglobin A1c was 7.8. Patient reported intolerance to metformin in the past. I had asked her to start Trulicity which she had agreed to. However patient never picked up the prescription. She is trying to treat her condition with diet and exercise. Has not been checking blood sugars either. Patient was diagnosed with COVID last week and is slowly recovering. She did not take Paxlovid. Patient continues to feel weak and tired. [facility] Medical History Rectovaginal fistula Hyperlipidemia LLQ pain Diverticulitis Type 2 diabetes mellitus Diverticulosis Compression fracture Osteopenia Skin cancer, basal cell Osteoarthritis PCOS (polycystic ovarian syndrome) CLL (chronic lymphocytic leukemia) Thrombocytopenia Surgical History History of tooth extraction History of ear surgery H/O colonoscopy Chronic disease of adenoids Hx of cholecystectomy H/O: hysterectomy Family History Father Prostate cancer Mother Breast cancer Social History Household Members: None Housing: Condominium Are you a primary health care recruiter to a significant other at home: No Do you presently have visiting nurse or other home services: No Alcohol intake: current Alcohol intake frequency: holidays/special occasions only Patient Tobacco Use Status: Never used Tobacco e-Cigarette/Vaping Use: Never Used Second Hand Smoke Exposure: No service: No Current occupational status: retired Cognitive needs: No Hearing needs: No Vision needs: No Questionnaire PHQ-9 Over the last 2 weeks, how often have you been bothered by any of the following problems? 1. Little interest or pleasure in doing things: not at all 2. Feeling down, depressed, or hopeless: not at all 3. Trouble falling or staying asleep, or sleeping too much: not at all 4. Feeling tired or having little energy: not at all 5. Poor appetite or overeating: not at all 6. Feeling bad about yourself - or that you are a failure or have let yourself or your family down: not at all 7. Trouble concentrating on things, such as reading the newspaper or watching television: not at all 8. Moving or speaking so slowly that other people could have noticed. Or the opposite - being so fidgety or restless that you have been moving around a lot more than usual: not at all 9. Thoughts that you would be better off or of hurting yourself in some way: not at all Total score: 0 Depression Screening Interpretation: Negative Depression Screening Done: Yes Source: Developed by Drs. Julio Villanueva, Noy Servin, Osman Guerra and colleagues, with an educational james from [employer]. Thrive Questionnaire Date Thrive assessed: 02/18/24 I am a: Patient What is your living situation today?: I have a steady place to live Within the past 12 months, did the food you bought not last and you didn't have the money to get more?: Never true Within the past 12 months, did you worry whether your food would run out before you got money to buy more?: Never true Do you have trouble paying for medicines?: No Do you have trouble getting transportation to medical appointments?: No Do you have trouble paying your heating and electricity bill?: No Do you have trouble taking care of your child, family member or friend?: No Do you have trouble with day-to-day activities such as bathing, preparing meals, shopping, managing finances, etc.?: No Are you currently unemployed and looking for a job?: No Are you interested in more education?: No Please select the resources that you would like help with: None Currently or been in a relationship where the following occur: No concerns reported THRIVE Score: 0 AUDIT C Alcohol Use Questionnaire (AUDIT-C) 1. How often do you have a drink containing alcohol?: Never Total Score: 0 MARCIA-7 AMB Questionnaire MARCIA-7 Date MARCIA - 7 assessed: 02/18/24 Feeling nervous, anxious, or on edge: 0 = Not at all Not being able to stop or control worryin = Not at all Worrying too much about different things: 0 = Not at all Trouble relaxin = Not at all Being so restless that it is hard to sit still: 0 = Not at all Becoming easily annoyed or irritable: 0 = Not at all Feeling afraid as if something awful might happen: 0 = Not at all Total MARCIA-7 score (0-4 normal; 5-9 mild; 10-14 moderate; 15-21 severe): 0 Source: Developed by Drs. Julio Villanueva, Noy Servin, Osman Guerra and colleagues, with an educational james from [employer]. Physical exam (Primary Care) BMI result Body Mass Index 34.7 BMI Assessment/Plan discussion: High Tobacco/Smoking Status: Tobacco use Status Tobacco use date assessed 01/13/24 02/18/24 08:49 Patient Tobacco Use Status Never used Tobacco 02/18/24 08:49 e-Cigarette/Vaping Use Never Used 02/18/24 08:49 Depression Screening Interpretation: Negative Thrive Assessment: Date of Thrive Assessment Date Thrive assessed 05/27/23 02/18/24 08:49 Currently or been in a relationship where the following occur: No concerns reported Const General: cooperative and healthy appearing Nutritional Appearance: well nourished Orientation/consciousness: patient oriented x3 Limitations: no limitations HENMT Head: Yes normal to inspection Eyes General: appearance normal, both eyes and all related structures Neck Neck: Yes normal visual inspection Chest Chest palpation & inspection: normal palpation of entire chest wall Resp Effort & Inspection: normal respiratory effort Neuro General: patient oriented x3 Coding Level of Care Code Est Pt Level 4 (90226) Complex EM visit Add On G2211 Diagnoses Type 2 diabetes mellitus E11.9 CLL (chronic lymphocytic leukemia) C91.10 Hyperlipidemia E78.5 Upper respiratory tract infection J06.9 Assessment & Plan Assessment & Plan (1) Type 2 diabetes mellitus: Comment: diet controlled Code(s): E11.9 - Type 2 diabetes mellitus without complications Category: Medical Plan: Repeat A1c was recorded. I explained to the patient that her sugars are difficult to control without her taking medications. Patient is still keen on going the route of diet and exercise only. (2) CLL (chronic lymphocytic leukemia): Comment: dx 17 years ago, obs only Code(s): C91.10 - Chronic lymphocytic leukemia of B-cell type not having achieved remission Category: Medical Plan: Condition is being followed by the manager web. (3) Hyperlipidemia: Code(s): E78.5 - Hyperlipidemia, unspecified Category: Medical Plan: Patient's LDL is elevated. Statin therapy suggested. Patient continues to decline the same. (4) Upper respiratory tract infection: Code(s): J06.9 - Acute upper respiratory infection, unspecified Plan: Patient has been diagnosed with COVID. She did not take Paxlovid. Orders: Orders AMB Hemoglobin A1c Today E11.9 - Type 2 diabetes mellitus without complications
[2024-02-18 08:51] VITALS: BP 110/70; PULSE 100; O2SAT 96; BMI 34.7
== END 2024-02-18 09:44 | disposition home or self-care (01) ==
PROVIDERS: PCP Internal Medicine; Visit Provider Internal Medicine
DX: E11.9 Type 2 diabetes mellitus without complications (principal); C91.10 Chronic lymphocytic leukemia of B-cell type not having achieved remission; E78.5 Hyperlipidemia, unspecified; J06.9 Acute upper respiratory infection, unspecified

== ENCOUNTER 2024-06-30 15:19 | Outpatient (AMB) | payer MEDICARE, SELFPAY ==
--- NOTE | 2024-06-30 15:24 | MHC.PC.OV ---
Vital Signs 06/30/24 15:27 Height 5 ft 4 in Weight 199 lb 2 oz BMI 34.2 BP 132/60 Blood Pressure Location Lt brachial Position Sitting Pulse 89 Pulse Source Pulse Oximeter Temp 97.1 F Temp Source Temporal Artery Scan Pulse Oximetry (%) 96 Oxygen Delivery Method Room Air Intake Visit Reasons: 1 Month F/U julia from 03/24/24 - see comments Intake Note: Patient is here to follow up on DM, HLD. Habitat Biologist Required: No Supply Cataloguer: Not Required per policy Accompanied by: Self / Same As Patient Allergies guaifenesin Allergy (Verified 07/01/24 15:26) Hives Medication List - Last Reconciled 07/01/24 by Darrell Chang MD blood sugar diagnostic As directed- daily blood-glucose meter As directed daily dulaglutide (Trulicity) 0.75 mg (0.5 mL) subcut QWEEK lancets As directed- daily Tobacco use date assessed: 06/30/24 Fall risk assessment: No Falls in past year Last assessed Fall Risk: 06/30/24 Dental Screening Dental Screen Date: 02/18/24 HPI 1 Month F/U julia from 03/24/24 - see comments HPI Details 73-year-old female presents to the office to discuss her chronic medical conditions. Patient has not been checking her blood sugars. 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 Compliant with all medications. [facility] Medical History Rectovaginal fistula Hyperlipidemia LLQ pain Diverticulitis Type 2 diabetes mellitus Diverticulosis Compression fracture Osteopenia Skin cancer, basal cell Osteoarthritis PCOS (polycystic ovarian syndrome) CLL (chronic lymphocytic leukemia) Thrombocytopenia Surgical History History of tooth extraction History of ear surgery H/O colonoscopy Chronic disease of adenoids Hx of cholecystectomy H/O: hysterectomy Family History Father Prostate cancer Mother Breast cancer Social History Household Members: None Housing: Condominium Are you a primary administrator health care facility to a significant other at home: No Do you presently have visiting nurse or other home services: No Alcohol intake: current Alcohol intake frequency: holidays/special occasions only Patient Tobacco Use Status: Never used Tobacco e-Cigarette/Vaping Use: Never Used Second Hand Smoke Exposure: No service: No Current occupational status: retired Cognitive needs: No Hearing needs: No Vision needs: No Questionnaire PHQ-9 Over the last 2 weeks, how often have you been bothered by any of the following problems? 1. Little interest or pleasure in doing things: not at all 2. Feeling down, depressed, or hopeless: not at all 3. Trouble falling or staying asleep, or sleeping too much: not at all 4. Feeling tired or having little energy: not at all 5. Poor appetite or overeating: not at all 6. Feeling bad about yourself - or that you are a failure or have let yourself or your family down: not at all 7. Trouble concentrating on things, such as reading the newspaper or watching television: not at all 8. Moving or speaking so slowly that other people could have noticed. Or the opposite - being so fidgety or restless that you have been moving around a lot more than usual: not at all 9. Thoughts that you would be better off or of hurting yourself in some way: not at all Total score: 0 Depression Screening Interpretation: Negative Depression Screening Done: Yes Source: Developed by Drs. Julio Villanueva, Noy Servin, Osman Guerra and colleagues, with an educational james from [employer]. Thrive Questionnaire Date Thrive assessed: 02/18/24 I am a: Patient What is your living situation today?: I have a steady place to live Within the past 12 months, did the food you bought not last and you didn't have the money to get more?: Never true Within the past 12 months, did you worry whether your food would run out before you got money to buy more?: Never true Do you have trouble paying for medicines?: I choose not to answer this question Do you have trouble getting transportation to medical appointments?: No Do you have trouble paying your heating and electricity bill?: No Do you have trouble taking care of your child, family member or friend?: No Do you have trouble with day-to-day activities such as bathing, preparing meals, shopping, managing finances, etc.?: No Are you currently unemployed and looking for a job?: No Are you interested in more education?: No Please select the resources that you would like help with: None Currently or been in a relationship where the following occur: No concerns reported THRIVE Score: 0 AUDIT C Alcohol Use Questionnaire (AUDIT-C) 1. How often do you have a drink containing alcohol?: Monthly or less 2. How many drinks containing alcohol do you have on a typical day when you are drinking?: 3 or 4 3. How often do you have six or more drinks on one occasion?: Never Total Score: 2 MARCIA-7 AMB Questionnaire MARCIA-7 Date MARCIA - 7 assessed: 02/18/24 Feeling nervous, anxious, or on edge: 0 = Not at all Not being able to stop or control worryin = Not at all Worrying too much about different things: 0 = Not at all Trouble relaxin = Not at all Being so restless that it is hard to sit still: 0 = Not at all Becoming easily annoyed or irritable: 0 = Not at all Feeling afraid as if something awful might happen: 0 = Not at all Total MARCIA-7 score (0-4 normal; 5-9 mild; 10-14 moderate; 15-21 severe): 0 Source: Developed by Drs. Julio Villanueva, Noy Servin, Osman Guerra and colleagues, with an educational james from [employer]. Physical exam (Primary Care) Vital Signs: Last Vital Signs Temp 97.1 F 06/30/24 15:27 Pulse 89 06/30/24 15:27 BP 132/60 06/30/24 15:27 Pulse Ox 96 06/30/24 15:27 Oxygen Delivery Method Room Air 06/30/24 15:27 BMI result Body Mass Index 34.2 Tobacco/Smoking Status: Tobacco use Status Tobacco use date assessed 06/30/24 06/30/24 15:34 Patient Tobacco Use Status Never used Tobacco 06/30/24 15:34 e-Cigarette/Vaping Use Never Used 06/30/24 15:34 PHQ-9: PHQ-9 Score PHQ-9: Total score 0 06/30/24 15:34 Depression Screening Interpretation: Negative Thrive Assessment: Date of Thrive Assessment Date Thrive assessed 02/18/24 06/30/24 15:34 Currently or been in a relationship where the following occur: No concerns reported Const General: cooperative and healthy appearing Nutritional Appearance: well nourished Orientation/consciousness: patient oriented x3 Limitations: no limitations HENMT Head: Yes normal to inspection Eyes General: appearance normal, both eyes and all related structures Neck Neck: Yes normal visual inspection Chest Chest palpation & inspection: normal palpation of entire chest wall Resp Effort & Inspection: normal respiratory effort Neuro General: patient oriented x3 Results AMB Hemoglobin A1c AMB Hemoglobin A1c 7.1 % Last Edit by MICHEAL Love on 06/30/24 16:01 Results Reviewed Results Reviewed: Laboratory Last Values Hgb A1c (Clinic) 7.1 % (4.0-6.0) H 06/30/24 15:24 Coding Level of Care Code Est Pt Level 3 (52912) Complex EM visit Add On G2211 Diagnoses Type 2 diabetes mellitus E11.9 Assessment & Plan Assessment & Plan (1) Type 2 diabetes mellitus: Comment: diet controlled Code(s): E11.9 - Type 2 diabetes mellitus without complications Category: Medical Plan: Compliance with medications urged. Blood work ordered. Orders: Orders AMB Hemoglobin A1c 06/30/24 E11.9 - Type 2 diabetes mellitus without complications
[2024-06-30 15:27] VITALS: BP 132/60; PULSE 89; TEMP 36.2; O2SAT 96; BMI 34.2
--- OUTSIDE RECORDS SUMMARY | 2024-06-30 15:50 | XMS_ITS | Data Portability ---
Author Organization ELISABETH Bass [address] [address] Address [address] [place] [address] Care Team Providers Care Soda Flaker Name Role Phone [facility] Family Medicine Assessment No assessment recorded. Plan of Treatment Reminders Order Date Submit Date Provider Last Modified By Organization Details Last Modified Time Details Appointments None recorded. Lab None recorded. Referral None recorded. Procedures None recorded. Surgeries None recorded. Imaging None recorded. Medication Orders cephalexin 500 mg capsule 2022 023 [id number], [address] [place], [place], [phone], 12:50:18 Patient TargetsNo targets recorded. Patient Instructions Encounter Date Encounter Id Patient Instructions Last Modified By Organization Details Last Modified Time 08/12/2022 [id number] paronychia: care instructions [email or web address] Not available 08/12/2022 12:50:19 Reason for Referral None Reported. 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 ELISABETH Torres [facility] 3 12:15:21 Lymphedema 098602701 Active 2022 Polly carmona PA [facility] [...] height Body mass index (BMI) Body weight Pain severity - 0-10 verbal numeric rating [Score] - Reported Oxygen saturation Oxygen saturation in Arterial blood by Pulse oximetry Heart rate Respiratory rate Body temperature Provider Name and Address Organization Details Last Updated DateTime 3 162.56 cm 34.7 kg/m2 52669.6 6 g 2 96 % 96 % 86 /min 20 /min 98.6 [degF] Polly Pachecobe PA [facility] 3 12:17:34 Social History Question Answer Notes LastModified by Organizat ion Details LastModified Time Tobacco Smoking Status Never Smoker Polly Nii carmona PA - [facility] 08/12/2022 12:15:54 Have You Had Direct Contact, Or Contact During Intimacy, With Monkeypox Rash, Scabs, Or Body Fluids From A Person With Monkeypox? No Information not available 08/12/2022 Have You Recently Traveled Abroad? No Information not available 08/12/2022 Sex: Unknown Functional Status Question Answer Note LastModified by Organizat ion Details LastModified Time Do you use any illicit or recreational drugs? No Information not available 08/12/2022 Do you or have you ever used any other forms of tobacco or nicotine? No Information not available 08/12/2022 What is your level of alcohol consumption? None Information not available 08/12/2022 Mental Status None recorded. Family History Relationship [...] Time Influenza, adjuvanted, trivalent, PF 6 completed Ploly Nii null, PA - [facility] 08/12/2022 12:14:30 Influenza, MDCK, quadrivalent, preservative 7 completed Polly Coulters null, PA - [facility] 08/12/2022 12:14:30 Influenza, high-dose, quadrivalent, PF 0 completed Polly Nii null, PA - [facility] 08/12/2022 12:14:30 Influenza, high-dose, quadrivalent, PF 2 completed Polly Nii null, PA - [facility] 08/12/2022 12:14:30 COVID-19, mRNA, LNP-S, PF, 100 mcg/0.5mL dose or 50 mcg/0.25mL dose 2 completed Polly Coulters null, PA - [facility] 08/12/2022 12:14:30 COVID-19, mRNA, LNP-S, PF, 30 mcg/0.3 mL dose 1 completed Polly Coulters null, PA - [facility] 08/12/2022 12:14:30 COVID-19, mRNA, LNP-S, PF, 30 mcg/0.3 mL dose 1 completed Polly Coulters null, PA - [facility] 08/12/2022 12:14:30 COVID-19, mRNA, LNP-S, PF, 30 mcg/0.3 mL dose 1 completed Polly Nii null, PA - [facility] 08/12/2022 12:14:30 COVID-19, mRNA, LNP-S, bivalent, PF, 30 mcg/0.3 mL dose 2 completed Polly Coulters null, PA - [facility] 08/12/2022 12:14:30 Influenza, split virus, quadrivalent, PF 8 completed Polly Coulters null, PA - [facility] 08/12/2022 12:14:30 Past Encounters Encounter ID Performer Location Encounter Start Date Encounter Closed Date Diagnosis/Indication Diagnosis SNOMED-CT Code Diagnosis ICD10 Code Diagnosis Note [id number] [address] [address] [place] [address] 07/31/2016 09:56:04 07/31/2016 10:54:24 [id number] [address] [place] [address] 08/28/2021 12:18:10 08/28/2021 13:35:19 [id number] [address] [place] [address] 01/16/2015 16:38:08 01/16/2015 17:31:53 [id number] Indra García MD [address] [place] [address] 08/12/2022 12:06:21 08/12/2022 12:52:13 Paronychia of finger of left hand [id number] 2950484 L03.012 Please follow up with PCP or Urgent Care in 3-5 days if no improvemen t or if any new symptoms occur that are concerning . Health Concerns Section Related Observation LastModified by Organization Detai ls LastModified Time None Recorded Concern Status LastModified by Organization Details LastModified Time None Recorded Advance Directives Directive None Recorded Payers Insurance Date Sequence Insurance Name Policy Number Policy [place] Covered Member ID [place] Member ID Guarantor Name 08/12/2022 1 [place] [employer] Vicenta Jose A Broshears [id number] 29 Vicenta L Broshears 08/12/2022 2 [place] [id number] Vicenta L Broshears [id number] Vicenta L Broshears 08/12/2022 2 [place] [id number] Vicenta L Broshears [id number] Vicenta L Broshears Notes Date Note Type Note Provider Name and Address Organization Details Recorded Time 08/12/2022 text/html Skin Redness UCReported bypatient.Locatio n:left hand Quality:painful;e rythematous;warm Severity:worsenin g Duration:1 days Onset:gradual onset Symptoms:no fever; no nausea; no vomiting;swelling Indra García MD [address] [place], [place] [address], [address], [place] - [facility] 08/12/2022 12:59:42 OBGyn Episode No OBEpisode recorded.
== END 2024-06-30 16:04 | disposition home or self-care (01) ==
LOC: HO.HMCH 15:19
PROVIDERS: PCP Internal Medicine; Visit Provider Internal Medicine
DX: E11.9 Type 2 diabetes mellitus without complications (principal)

== ENCOUNTER → 2024-06-30 15:19 | Outpatient (BNVA) | payer MEDICARE, SELFPAY | PROVIDERS: PCP Internal Medicine; Visit Provider Internal Medicine | DX: E11.9 Type 2 diabetes mellitus without complications (principal) | CPT/HCPCS: 83036; 99212 ==

== ENCOUNTER 2024-07-05 07:58 | Outpatient (REF) | payer MEDICARE, SELFPAY ==
--- OUTSIDE RECORDS SUMMARY | 2024-07-05 08:00 | XMS_ITS | Data Portability ---
Author Organization ELISABETH Bass [address] [address] Address [address] [place] [address] Care Team Providers Care Field Nurse Name Role Phone [facility] Family Medicine Assessment No assessment recorded. Plan of Treatment Reminders Order Date Submit Date Provider Last Modified By Organization Details Last Modified Time Details Appointments None recorded. Lab None recorded. Referral None recorded. Procedures None recorded. Surgeries None recorded. Imaging None recorded. Medication Orders cephalexin 500 mg capsule 2022 023 [id number], [address], [place], [phone], 12:50:18 Patient TargetsNo targets recorded. Patient Instructions Encounter Date Encounter Id Patient Instructions Last Modified By Organization Details Last Modified Time 08/12/2022 [id number] paronychia: care instructions [email or web address] Not available 08/12/2022 12:50:19 Reason for Referral None Reported. Problems Name Problem SNOMED Code Status Onset Date Resolution Date Notes Provider Name and Address Organization Details Recorded Time T-cell chronic lymphocytic leukemia 923786615 Active 2022 ELISABETH Torres [facility] 3 12:15:21 Lymphedema 915088420 Active 2022 Polly carmona PA [facility] 12:17:02 Notes:Pre-diabetes Problem Notes None recorded. [...] Updated DateTime 3 162.56 cm 34.7 kg/m2 21136.6 6 g 96 % 96 % 86 /min 20 /min 98.6 [degF] Polly BARBER - [facility] 3 12:17:34 Social History Question Answer Notes LastModified by Organizat ion Details LastModified Time Tobacco Smoking Status Never Smoker ELISABETH [facility] 08/12/2022 12:15:54 Have You Had Direct [...] Time Influenza, adjuvanted, trivalent, PF 6 completed Polly Tyrone null, PA - [facility] 08/12/2022 12:14:30 Influenza, MDCK, quadrivalent, preservative 7 completed Polly Tyrone null, PA - [facility] 08/12/2022 12:14:30 Influenza, high-dose, quadrivalent, PF 0 completed Polly Nii null, PA - [facility] 08/12/2022 12:14:30 Influenza, high-dose, quadrivalent, PF 2 completed Polly Tyrone null, PA - [facility] 08/12/2022 12:14:30 COVID-19, mRNA, LNP-S, PF, 100 mcg/0.5mL dose or 50 mcg/0.25mL dose 2 completed Polly Nii null, PA - [facility] 08/12/2022 12:14:30 COVID-19, mRNA, LNP-S, PF, 30 mcg/0.3 mL dose 1 completed Polly Tyrone null, PA - [facility] 08/12/2022 12:14:30 COVID-19, mRNA, LNP-S, PF, 30 mcg/0.3 mL dose 1 completed Polly Tyrone null, PA - [facility] 08/12/2022 12:14:30 COVID-19, mRNA, LNP-S, PF, 30 mcg/0.3 mL dose 1 completed Polly Nii null, PA - [facility] 08/12/2022 12:14:30 COVID-19, mRNA, LNP-S, bivalent, PF, 30 mcg/0.3 mL dose 2 completed Polly Tyrone null, PA - [facility] 08/12/2022 12:14:30 Influenza, split virus, quadrivalent, PF 8 completed Polly Tyrone null, PA - [facility] 08/12/2022 12:14:30 Past Encounters Encounter ID Performer Location Encounter Start Date Encounter Closed Date Diagnosis/Indication Diagnosis SNOMED-CT Code Diagnosis ICD10 Code Diagnosis Note [id number] [address] [facility] [address] [place] [address] 07/31/2016 09:56:04 07/31/2016 10:54:24 [id number] [address] [place] [address] 08/28/2021 12:18:10 08/28/2021 13:35:19 [id number] [address] [facility] [place] [address] 01/16/2015 16:38:08 01/16/2015 17:31:53 [id number] Indra García MD [address] [place] [address] 08/12/2022 12:06:21 08/12/2022 12:52:13 Paronychia of finger of left hand [id number] L03.012 Please follow up with PCP or [...] ID Guarantor Name 08/12/2022 1 [place] [employer] Vicenta Guilloryears [id number] Vicenta L Broshears 08/12/2022 2 [place] [id number] Vicenta Jose A Broshears [id number] Vicenta L Broshears 08/12/2022 2 [place] [id number] Vicenta L Broshears [id number] Vicenta L Broshears Notes Date Note Type Note Provider Name and Address Organization Details Recorded Time 08/12/2022 text/html Skin Redness UCReported bypatient.Locatio n:left hand Quality:painful;e rythematous;warm Severity:worsenin g Duration:1 days Onset:gradual onset Symptoms:no fever; no nausea; no vomiting;swelling Indra García MD [facility] [place], [address], [place] - [facility] 08/12/2022 12:59:42 OBGyn Episode No OBEpisode recorded.
[2024-07-05 10:21] LABS: Hematocrit 49.5 % (37.0-47.0); Hemoglobin 16.6 g/dl (12.0-16.0); Mean Corpuscular HGB Conc 33.5 g/dl (31.0-35.0); Mean Corpuscular Hemoglobin 29.2 pg (27.0-33.0); Mean Corpuscular Volume 87.1 fL (80.0-98.0); Mean Platelet Volume 12.7 fL (9.4-12.3); Platelet Count 132 X10*3/uL (160-400); Red Blood Count 5.68 X10*6/uL (4.20-5.50); Red Cell Distribution Width 14.6 % (11.0-16.0); White Blood Count 22.7 X10*3/uL (4.8-10.8)
[2024-07-05 10:25] LABS: Appearance Urine Turbid; Color Urine Yellow; Glucose Urine UA 250 mg/dL (Negative); Leukocyte Esterase Urine Small (1+) (Negative); Nitrite Urine Negative (Negative); Specific Gravity - Urine >= 1.030 (1.005-1.025); UMIC TRIGGER UA YES; Urine Blood Trace (Negative); Urine Ketones Negative (Negative); Urine Protein 30 (1+) mg/dL (Neg-Trace)
[2024-07-05 10:41] LABS: Estimated Average Glucose 166 mg/dL; Hemoglobin A1C 264.2329 umol/L; Hemoglobin A1c % 7.4 % (<6.0); Total Hemoglobin (HGBA1C) 4644.1974 umol/L
[2024-07-05 10:56] LABS: Alanine Aminotransferase 10 U/L (0-31); Albumin Level 4.1 g/dL (3.5-5.0); Alkaline Phosphatase 87 U/L (39-117); Anion Gap 13 (12-20); Aspartate Amino Transferase 23 U/L (5-31); Bilirubin Direct 0.2 mg/dL (0.0-0.5); Bilirubin Total 0.6 mg/dL (0.0-1.0); Blood Urea Nitrogen 22 mg/dL (9-16); Calcium 9.1 mg/dL (8.4-10.2); Carbon Dioxide 23 mmol/L (22-29); Chloride 109 mmol/L (96-108); Cholesterol 223 mg/dL (<200); Estimated Glomerular Filt Rate > 60; Glucose Random 195 mg/dL (60-115); HDL Cholesterol 31 mg/dL (>40); LDL Cholesterol Calculated 142 mg/dL (<100); Potassium 3.8 mmol/L (3.3-5.1); Sodium 141 mmol/L (135-145); Total Protein 6.6 g/dL (6.5-8.0); Triglycerides 251 mg/dL (<150)
[2024-07-05 10:57] LABS: Thyroid Stimulating Hormone 0.47 uIU/mL (0.32-4.0)
[2024-07-05 11:00] LABS: Bacteria Urine 4+ (None Seen); Squamous Epithelial Cell Urine >20 /HPF (0-2); WBC Urine >50 /HPF (0-5)
[2024-07-05 11:25] LABS: Creatinine Urine 254.26 mg/dL; Microalbum/Creatinine Ratio Ur 38.5 ug/mg cr (<30)
== END 2024-07-05 07:59 | disposition home or self-care (01) ==
LOC: HO.HMGCLDS 07:58
PROVIDERS: PCP Internal Medicine; Visit Provider Internal Medicine
DX: E11.9 Type 2 diabetes mellitus without complications (principal)
CPT/HCPCS: 36415; 80048; 80061; 80076; 81001; 82043; 82570; 83036; 84443; 85027